=== PATIENT | female | born 1955 | race Two or more races ===

== ENCOUNTER 2017-02-13 11:43 | Emergency (ER) | payer OTHER, MEDICAID ==
[~2017-02-13] VITALS: Ht 157.5 cm; Wt 101.2 kg
[2017-02-13 13:19] LABS: Basophils # (auto) 0 uL; Basophils % (auto) 0.4 % (0.0-2.0); Eosinophils # (auto) 0.2 uL; Eosinophils % (auto) 2.2 % (0.0-7.0); Hematocrit 42.3 % (36.0-46.0); Hemoglobin 14.3 g/dL (12.2-16.2); Lymphocytes # (auto) 2.6 uL; Lymphocytes % (auto) 26.9 % (10.0-50.0); Mean Corpuscular Hemoglobin 29.1 pg (28.0-32.0); Mean Corpuscular Hgb Conc. 33.8 g/dL (32.0-36.0); Mean Corpuscular Volume 86.1 fL (80.0-100.0); Mean Platelet Volume 8.7 fL (7.4-10.4); Monocytes # (auto) 0.5 uL; Monocytes % (auto) 5.4 % (0.0-12.0); Neutrophils # (auto) 6.4 uL; Neutrophils % (auto) 65.1 % (37.0-80.0); Platelet Count (auto) 239 10^3/uL (140-450); White Blood Cell 9.8 10^3/uL (4.4-10.8)
[2017-02-13 13:25] LABS: Albumin 3.4 g/dL (3.4-5.0); Anion Gap 8 (5-15); Aspartate Aminotransferase 23 U/L (15-37); Blood Urea Nitrogen 13 mg/dL (7-18); Calcium 8.1 mg/dL (8.5-10.1); Carbon Dioxide 24 mmol/L (21-32); Chloride 110 mmol/L (98-107); GFR African American 118 mL/min; GFR Non-African American 98 mL/min; Glucose 120 mg/dL (74-106); Potassium 3.9 mmol/L (3.5-5.1); Sodium 142 mmol/L (136-145)
[2017-02-13 13:30] LABS: Alkaline Phosphatase 142 U/L (45-117); Bilirubin, Total 0.3 mg/dL (0.2-1.0); Total Protein 7.5 g/dL (6.4-8.2)
[2017-02-13 14:42] VITALS: BP 150/63
[2017-02-13] MEDS ORDERED: PROCHLORPERAZINE EDISYLATE 5 MG/ML 2ML VIAL IM ONE (15:00)
[2017-02-13] MEDS ORDERED: NALBUPHINE HCL 10 MG/1ml INJECTION IM ONE (15:00)
== END 2017-02-13 15:30 | disposition home or self-care (01) ==
LOC: ER 11:43
DX: G44.209 Tension-type headache, unspecified, not intractable (principal); M19.90 Unspecified osteoarthritis, unspecified site; J45.909 Unspecified asthma, uncomplicated; E78.5 Hyperlipidemia, unspecified; I10 Essential (primary) hypertension; F17.210 Nicotine dependence, cigarettes, uncomplicated; Z88.2 Allergy status to sulfonamides
CPT/HCPCS: 36415; 70450; 80053; 84484; 85025; 93005; 96372; 99285; J0780; J2300

== ENCOUNTER → 2017-04-29 | Outpatient (CLI) | payer OTHER, MEDICAID | END | disposition home or self-care (01) | LOC: RT 18:52 | PROVIDERS: ATTEND Internal Medicine | DX: R51 Headache (principal) ==

== ENCOUNTER 2017-06-17 10:01 | Day surgery (SDC) | payer OTHER, MEDICAID ==
[2017-06-15 16:46] LABS: Basophils # (auto) 0 uL; Basophils % (auto) 0.3 % (0.0-2.0); CONDITION Y; Eosinophils # (auto) 0.2 uL; Eosinophils % (auto) 1.3 % (0.0-7.0); Hematocrit 44.6 % (36.0-46.0); Hemoglobin 15.1 g/dL (12.2-16.2); Lymphocytes % (auto) 23.7 % (10.0-50.0); Mean Corpuscular Hemoglobin 29.6 pg (28.0-32.0); Mean Corpuscular Hgb Conc. 33.9 g/dL (32.0-36.0); Mean Corpuscular Volume 87.4 fL (80.0-100.0); Mean Platelet Volume 8.8 fL (7.4-10.4); Monocytes # (auto) 0.6 uL; Monocytes % (auto) 4.6 % (0.0-12.0); Neutrophils # (auto) 8.9 uL; Neutrophils % (auto) 70.1 % (37.0-80.0); Platelet Count (auto) 273 10^3/uL (140-450); Red Cell Distribution Width 13.7 % (11.6-16.0); White Blood Cell 12.7 10^3/uL (4.4-10.8)
[2017-06-15 16:49] LABS: Urine Bilirubin Negative (Negative); Urine Blood Negative /uL (Negative); Urine Color Yellow (Yellow); Urine Glucose Normal (Normal); Urine Ketone Negative (Negative); Urine Mucus FEW (None Seen); Urine Nitrite Negative (Negative); Urine RBC <1 /hpf (0 - 4); Urine Squamous Epithelial Cell FEW /hpf (<5)
[2017-06-15 16:56] LABS: Albumin 3.7 g/dL (3.4-5.0); Calcium 8.8 mg/dL (8.5-10.1)
[2017-06-15 16:58] LABS: INR 0.95 (0.9-1.15); Partial Thromboplastin Time 27.4 sec (22.64-33.71); Prothrombin Time 10.3 sec (9.37-12.3)
[2017-06-15 16:59] LABS: BUN/Creatinine Ratio 31.8
[2017-06-15 17:01] LABS: Bilirubin, Total 0.3 mg/dL (0.2-1.0); Total Protein 7.7 g/dL (6.4-8.2)
[~2017-06-17] VITALS: Ht 157.5 cm; Wt 103.0 kg
[2017-06-17] MEDS ORDERED: ceFAZolin 1GM/50ML D5W 50 ML IV ONE (10:56)
[2017-06-17] MEDS ORDERED: BUPIVACAINE 0.75% INJ 10ML MPV SDV IJ ONE (12:45)
[2017-06-17] MEDS ORDERED: MIDAZOLAM HCL 1MG/1ML-2 ML VIAL ONE (13:08)
[2017-06-17] MEDS ORDERED: fentaNYL CITRATE 100 MCG/2 ML VL ONE (13:08)
[2017-06-17] MEDS ORDERED: PROPOFOL 10 MG/ML 20 ML IV ONE (13:10)
[2017-06-17] MEDS ORDERED: ePHEDrine SULFATE 50 MG/ML AMP IV PRN (13:15)
[2017-06-17] MEDS ORDERED: LABETALOL HCL 5 MG/ML 4ML SYRINGE IV PRN (13:15)
[2017-06-17] MEDS ORDERED: hydrALAZINE HCL 20 MG/ML VL IV PRN (13:15)
[2017-06-17] MEDS ORDERED: HYDROmorphone HCL 2 MG/ML VL IV PRN ×2 (13:15)
[2017-06-17] MEDS ORDERED: METOCLOPRAMIDE HCL 5MG/ml INJ 2ml VIAL IV ONE (13:15)
[2017-06-17] MEDS ORDERED: ONDANSETRON HCL 4 MG/2 ML VIAL IV ONE (13:15)
[2017-06-17] MEDS ORDERED: ceFAZolin 1GM VL ONE (13:23)
[2017-06-17] MEDS ORDERED: methylPREDNISolone ACETATE 80 MG/ML VL ONE (13:40)
[2017-06-17 15:00] VITALS: BP 113/59
== END 2017-06-17 15:00 | disposition home or self-care (01) ==
LOC: SUR 10:01
PROVIDERS: ATTEND Podiatrist Foot & Ankle Surgery
DX: M65.871 Other synovitis and tenosynovitis, right ankle and foot (principal); M25.571 Pain in right ankle and joints of right foot; J44.9 Chronic obstructive pulmonary disease, unspecified; E66.9 Obesity, unspecified; E11.9 Type 2 diabetes mellitus without complications; F17.200 Nicotine dependence, unspecified, uncomplicated
CPT/HCPCS: 27626; 36415; 80053; 81001; 82962; 85025; 85610; 85730; J0690; J1040; J2250; J2704; J3010; J3490

== ENCOUNTER → 2017-08-26 | Outpatient (CLI) | payer OTHER, MEDICAID ==
[2017-08-26 10:20] LABS: Basophils # (auto) 0.1 uL; Basophils % (auto) 0.6 % (0.0-2.0); Eosinophils # (auto) 0.2 uL; Eosinophils % (auto) 1.8 % (0.0-7.0); Hematocrit 42.7 % (36.0-46.0); Hemoglobin 14.8 g/dL (12.2-16.2); Lymphocytes # (auto) 2.2 uL; Lymphocytes % (auto) 24.9 % (10.0-50.0); Mean Corpuscular Hemoglobin 30.2 pg (28.0-32.0); Mean Corpuscular Hgb Conc. 34.6 g/dL (32.0-36.0); Mean Corpuscular Volume 87.5 fL (80.0-100.0); Mean Platelet Volume 7.9 fL (6.9-10.8); Monocytes # (auto) 0.4 uL; Monocytes % (auto) 4.6 % (0.0-12.0); Neutrophils # (auto) 5.9 uL; Neutrophils % (auto) 68.1 % (37.0-80.0); Nucleated Red Blood Cells % 0.1 %; Platelet Count (auto) 216 10^3/uL (140-450); Red Cell Distribution Width 13.7 % (11.8-14.3); White Blood Cell 8.7 10^3/uL (4.4-10.8)
[2017-08-26 10:32] LABS: Urine Bilirubin Negative (Negative); Urine Blood Negative /uL (Negative); Urine Color Yellow (Yellow); Urine Glucose Normal (Normal); Urine Ketone Negative (Negative); Urine Mucus FEW (None Seen); Urine Nitrite Negative (Negative); Urine RBC 1 /hpf (0 - 4); Urine Squamous Epithelial Cell FEW /hpf (<5); Urine Urobilinogen Normal (Negative); Urine pH 5.5 (5.0-8.0)
[2017-08-26 11:20] LABS: Albumin 3.6 g/dL (3.4-5.0); BUN/Creatinine Ratio 22.2; Bilirubin, Total 0.8 mg/dL (0.2-1.0); Calcium 8.8 mg/dL (8.5-10.1); Potassium 3.8 mmol/L (3.5-5.1); Total Protein 7.8 g/dL (6.4-8.2)
== END | disposition home or self-care (01) ==
LOC: LAB 09:48
PROVIDERS: ATTEND Internal Medicine
DX: E11.9 Type 2 diabetes mellitus without complications (principal); I10 Essential (primary) hypertension; Z79.899 Other long term (current) drug therapy
CPT/HCPCS: 36415; 80053; 80061; 80307; 81001; 82043; 82306; 83036; 84439; 84443; 85025; 85652

== ENCOUNTER 2017-10-07 10:59 | Inpatient (IN) | payer OTHER, MEDICAID ==
[~2017-10-07] VITALS: Ht 157.5 cm; Wt 81.3 kg
[2017-10-07] MEDS ORDERED: SODIUM CHLORIDE 0.9% 1,000 ML IV ONE (13:52)
[2017-10-07] MEDS ORDERED: NALBUPHINE HCL 10 MG/1ml INJECTION IV ONE (14:00)
[2017-10-07] MEDS ORDERED: PROMETHAZINE HCL 25 MG/ML 1ML IV ONE (14:00)
[2017-10-07 14:13] LABS: Urine Bilirubin Negative (Negative); Urine Blood Negative /uL (Negative); Urine Color Yellow (Yellow); Urine Glucose Normal (Normal); Urine Ketone Negative (Negative); Urine Mucus FEW (None Seen); Urine Nitrite POSITIVE (Negative); Urine RBC <1 /hpf (0 - 4); Urine Squamous Epithelial Cell FEW /hpf (<5); Urine Urobilinogen Normal (Negative); Urine pH 7.5 (5.0-8.0)
[2017-10-07 15:07] LABS: Basophils # (auto) 0.2 uL; Basophils % (auto) 1.5 % (0.0-2.0); Eosinophils # (auto) 0 uL; Eosinophils % (auto) 0.2 % (0.0-7.0); Hematocrit 44.1 % (36.0-46.0); Lymphocytes # (auto) 1.3 uL; Lymphocytes % (auto) 10.8 % (10.0-50.0); Mean Corpuscular Hemoglobin 30.2 pg (28.0-32.0); Mean Corpuscular Volume 88.7 fL (80.0-100.0); Mean Platelet Volume 7.8 fL (6.9-10.8); Monocytes # (auto) 0.5 uL; Neutrophils # (auto) 9.9 uL; Neutrophils % (auto) 83.5 % (37.0-80.0); Nucleated Red Blood Cells % 0.2 %; Platelet Count (auto) 201 10^3/uL (140-450); Red Cell Distribution Width 13.3 % (11.8-14.3); White Blood Cell 11.9 10^3/uL (4.4-10.8)
[2017-10-07 15:08] LABS: Albumin 3.5 g/dL (3.4-5.0); BUN/Creatinine Ratio 15.2; Calcium 8.9 mg/dL (8.5-10.1)
[2017-10-07 15:11] LABS: Bilirubin, Total 0.5 mg/dL (0.2-1.0); Total Protein 7.8 g/dL (6.4-8.2)
[2017-10-07] MEDS ORDERED: LACTULOSE 20Gm/30ML SOLN PO PRN (16:45)
[2017-10-07] MEDS ORDERED: ACETAMINOPHEN 500 MG TAB PO PRN (16:45)
[2017-10-07] MEDS ORDERED: MORPHINE SULFATE 10 MG/ML INJ 1ML SDV IV PRN ×2 (16:45)
[2017-10-07] MEDS ORDERED: NITROGLYCERIN 0.4 MG SL TAB SL PRN (16:45)
[2017-10-07] MEDS ORDERED: LORazepam 0.5 MG TAB PO PRN (16:45)
[2017-10-07] MEDS ORDERED: TEMAZEPAM 15 MG CAP PO PRN (16:45)
[2017-10-07] MEDS ORDERED: PROMETHAZINE HCL 25 MG/ML 1ML IV PRN (16:45)
[2017-10-07] MEDS ORDERED: cefTRIAXone 1GM/50ML D5W 50 ML IV ONE (16:45)
[2017-10-07] MEDS: SODIUM CHLORIDE 0.9% 1,000 ML IV SCH ×2 (17:10→21:49)
[2017-10-07] MEDS ORDERED: IOHEXOL 300 MG/ML 100ML BOTTLE IJ ONE (19:08)
[2017-10-07] MEDS: HYDROcodone-ACET 5/325MG TAB PO PRN (19:45)
[2017-10-07] MEDS ORDERED: LORazepam 2MG/ML-1ML VIAL IV PRN (20:15)
[2017-10-07] MEDS ORDERED: predniSONE 20 MG TAB PO ONE (20:30)
[2017-10-07] MEDS ORDERED: FAMOTIDINE 20 MG TAB PO ONE (20:30)
[2017-10-07 20:55] VITALS: BP 158/74
[2017-10-07 21:10] VITALS: BP 158/74
[2017-10-07] MEDS: ATORVASTATIN 20 MG TAB PO SCH (21:49)
[2017-10-08] VITALS (7 sets, daily range): BP systolic 111–163; BP diastolic 41–89
[2017-10-08] MEDS: HYDROcodone-ACET 5/325MG TAB PO PRN ×3 (04:34→22:12)
[2017-10-08] MEDS: SODIUM CHLORIDE 0.9% 1,000 ML IV SCH ×2 (04:53→17:05)
[2017-10-08 05:42] LABS: Cholesterol 194 mg/dL (< 200); HDL Cholesterol 50 mg/dL (40-59); LDL Cholesterol 140 mg/dL (< 100); Triglycerides 135 mg/dL (< 150)
[2017-10-08] MEDS: predniSONE 20 MG TAB PO SCH (09:43)
[2017-10-08] MEDS: cefTRIAXone 1GM/50ML D5W 50 ML IV SCH (09:43)
[2017-10-08] MEDS: ASPirin 81 mg TAB PO SCH (09:43)
[2017-10-08] MEDS: FAMOTIDINE 20 MG TAB PO SCH (09:43)
[2017-10-08] MEDS: ENOXAPARIN SOD 40 MG/0.4 ML SYRINGE SC SCH (09:44)
[2017-10-08 13:14] LABS: Temperature: 23.5 C (20.0-25.0)
[2017-10-08] MEDS ORDERED: FLUO-125 PO (16:47)
[2017-10-08] MEDS ORDERED: GABA-497 PO (16:47)
[2017-10-08] MEDS ORDERED: BUPR200T2 PO (16:47)
[2017-10-08] MEDS ORDERED: AMIT25TA9 PO (16:47)
[2017-10-08] MEDS ORDERED: LOSA25TA9 PO (16:47)
[2017-10-08] MEDS ORDERED: LOSARTAN POTASSIUM 25 MG TAB PO ONE (18:30)
[2017-10-08] MEDS: KETOROLAC TROMETH 30 MG/ML 1ML VIAL IV PRN (18:44)
[2017-10-08] MEDS: ATORVASTATIN 20 MG TAB PO SCH (22:11)
[2017-10-09 05:00] VITALS: BP 119/42
[2017-10-09 05:45] LABS: Basophils # (auto) 0 uL; Basophils % (auto) 0.3 % (0.0-2.0); Eosinophils # (auto) 0.1 uL; Eosinophils % (auto) 0.5 % (0.0-7.0); Hematocrit 41.3 % (36.0-46.0); Lymphocytes # (auto) 3.6 uL; Lymphocytes % (auto) 29.9 % (10.0-50.0); Mean Corpuscular Hemoglobin 30.1 pg (28.0-32.0); Mean Corpuscular Hgb Conc. 33.9 g/dL (32.0-36.0); Mean Corpuscular Volume 88.8 fL (80.0-100.0); Mean Platelet Volume 8.2 fL (6.9-10.8); Monocytes # (auto) 0.7 uL; Monocytes % (auto) 5.9 % (0.0-12.0); Neutrophils # (auto) 7.7 uL; Neutrophils % (auto) 63.4 % (37.0-80.0); Nucleated Red Blood Cells % 0.1 %; Platelet Count (auto) 199 10^3/uL (140-450); Red Cell Distribution Width 13.7 % (11.8-14.3); White Blood Cell 12.2 10^3/uL (4.4-10.8)
[2017-10-09] MEDS: SODIUM CHLORIDE 0.9% 1,000 ML IV SCH ×3 (05:46→22:00)
[2017-10-09 06:11] LABS: Potassium 3.8 mmol/L (3.5-5.1)
[2017-10-09 06:17] LABS: BUN/Creatinine Ratio 30.4; Calcium 9.1 mg/dL (8.5-10.1)
[2017-10-09 08:00] VITALS: BP 129/59
[2017-10-09 08:23] LABS: INR 0.97 (0.9-1.15); Partial Thromboplastin Time 26.5 sec (22.64-33.71); Prothrombin Time 10.6 sec (9.37-12.3)
[2017-10-09 09:00] VITALS: BP 129/59
[2017-10-09] MEDS: cefTRIAXone 1GM/50ML D5W 50 ML IV SCH (09:00)
[2017-10-09] MEDS ORDERED: GELATIN 1 SPONGE SIZE 100 TOP ONE (09:50)
[2017-10-09] MEDS ORDERED: GELATIN 1 SPONGE SIZE 50 TOP ONE (09:50)
[2017-10-09] MEDS ORDERED: LIDOCAINE 1% HCL (LOCAL ANESTH.) INJ 20ML MDV ONE (09:50)
[2017-10-09] MEDS: ASPirin 81 mg TAB PO SCH (10:00)
[2017-10-09] MEDS: ENOXAPARIN SOD 40 MG/0.4 ML SYRINGE SC SCH (10:00)
[2017-10-09] MEDS: predniSONE 20 MG TAB PO SCH (10:00)
[2017-10-09] MEDS: FAMOTIDINE 20 MG TAB PO SCH (10:00)
[2017-10-09] MEDS ORDERED: fentaNYL CITRATE 100 MCG/2 ML VL ONE (10:10)
[2017-10-09] MEDS ORDERED: MIDAZOLAM HCL 1MG/1ML-2 ML VIAL ONE (10:10)
[2017-10-09] MEDS ORDERED: ceFAZolin 1GM/50ML 50 ML IV ONE (10:14)
[2017-10-09] MEDS ORDERED: LABETALOL HCL 5 MG/ML 4ML SYRINGE IV PRN (10:15)
[2017-10-09] MEDS ORDERED: KETOROLAC TROMETH 30 MG/ML 1ML VIAL IV ONE (10:15)
[2017-10-09] MEDS ORDERED: MIDAZOLAM HCL 1MG/1ML-2 ML VIAL IV PRN (10:15)
[2017-10-09] MEDS ORDERED: ONDANSETRON HCL 4 MG/2 ML VIAL IV ONE (10:15)
[2017-10-09] MEDS ORDERED: HYDROmorphone HCL 2 MG/ML VL IV PRN (10:15)
[2017-10-09] MEDS ORDERED: ePHEDrine SULFATE 50 MG/ML AMP IV PRN (10:15)
[2017-10-09] MEDS ORDERED: DEXAMETHASONE SOD PHOS 10MG/1ML VIAL INJ ONE (11:18)
[2017-10-09] MEDS ORDERED: PROPOFOL 10 MG/ML 20 ML IV ONE (11:18)
[2017-10-09] MEDS ORDERED: KETOROLAC TROMETH 30 MG/ML 1ML VIAL ONE (11:18)
[2017-10-09] MEDS ORDERED: ceFAZolin 1GM VL ONE (11:19)
[2017-10-09 13:00] VITALS: BP 160/96
[2017-10-09] MEDS: LOSARTAN POTASSIUM 25 MG TAB PO SCH (14:00)
[2017-10-09 17:00] VITALS: BP 139/70
[2017-10-09] MEDS: HYDROcodone-ACET 5/325MG TAB PO PRN (17:21)
[2017-10-09] MEDS: ATORVASTATIN 20 MG TAB PO SCH (21:15)
[2017-10-09 22:00] VITALS: BP 136/61
[2017-10-10 05:00] VITALS: BP 125/52
[2017-10-10] MEDS: SODIUM CHLORIDE 0.9% 1,000 ML IV SCH (06:29)
[2017-10-10] MEDS: HYDROcodone-ACET 5/325MG TAB PO PRN ×2 (06:29→12:37)
[2017-10-10 09:00] VITALS: BP 155/66
[2017-10-10] MEDS: FAMOTIDINE 20 MG TAB PO SCH (09:38)
[2017-10-10] MEDS: LOSARTAN POTASSIUM 25 MG TAB PO SCH (09:39)
[2017-10-10] MEDS: ENOXAPARIN SOD 40 MG/0.4 ML SYRINGE SC SCH (09:40)
[2017-10-10] MEDS: predniSONE 20 MG TAB PO SCH (09:40)
[2017-10-10] MEDS: cefTRIAXone 1GM/50ML D5W 50 ML IV SCH (09:40)
[2017-10-10] MEDS: ASPirin 81 mg TAB PO SCH (09:40)
[2017-10-10] MEDS: KETOROLAC TROMETH 30 MG/ML 1ML VIAL IV PRN (10:46)
[2017-10-10 13:00] VITALS: BP 151/62
== END 2017-10-10 14:56 | disposition home or self-care (01) | DRG 134 ==
LOC: ER 10:59 → TELE 11:00 → TELE-WESTW 20:50
PROVIDERS: ADMIT Internal Medicine; ATTEND Family Medicine
PROC: 03BS0ZX Excision of Right Temporal Artery, Open Approach, Diagnostic (ICD-10-PCS; principal; 2017-10-09 10:57)
DX: M26.69 Other specified disorders of temporomandibular joint (principal); M31.6 Other giant cell arteritis; E11.9 Type 2 diabetes mellitus without complications; E78.5 Hyperlipidemia, unspecified; I10 Essential (primary) hypertension; J45.909 Unspecified asthma, uncomplicated; F17.210 Nicotine dependence, cigarettes, uncomplicated; G50.0 Trigeminal neuralgia; M19.90 Unspecified osteoarthritis, unspecified site; E66.9 Obesity, unspecified; Z88.8 Allergy status to other drugs, medicaments and biological substances; Z86.73 Personal history of transient ischemic attack (TIA), and cerebral infarction without residual deficits; Z68.32 Body mass index [BMI] 32.0-32.9, adult
CPT/HCPCS: 36415; 70450; 70487; 70551; 71020; 80048; 80053; 80061; 80307; 81001; 82550; 82607; 82746; 83735; 84443; 85025; 85610; 85652; 85730; 86141; 87086; 92610; 93005; 93306; 93886; 94761; 96361; 96374; 96375; J0690; J0696; J1100; J1885; J2001; J2250; J2704

== ENCOUNTER → 2017-10-21 | Outpatient (CLI) | payer OTHER, MEDICAID ==
[~2017-10-21] MED LIST: AMIT25TA9 PO; BUPR200T2 PO; FLUO-125 PO; GABA-497 PO; LOSA25TA9 PO
[2017-10-21 14:26] LABS: Basophils # (auto) 0 uL; Basophils % (auto) 0.5 % (0.0-2.0); Eosinophils # (auto) 0.2 uL; Eosinophils % (auto) 2.6 % (0.0-7.0); Hematocrit 39.7 % (36.0-46.0); Hemoglobin 13.4 g/dL (12.2-16.2); Lymphocytes # (auto) 2.8 uL; Lymphocytes % (auto) 30.7 % (10.0-50.0); Mean Corpuscular Hemoglobin 30.1 pg (28.0-32.0); Mean Corpuscular Hgb Conc. 33.7 g/dL (32.0-36.0); Mean Corpuscular Volume 89.1 fL (80.0-100.0); Mean Platelet Volume 7.8 fL (6.9-10.8); Monocytes # (auto) 0.4 uL; Monocytes % (auto) 4.8 % (0.0-12.0); Neutrophils # (auto) 5.6 uL; Neutrophils % (auto) 61.4 % (37.0-80.0); Nucleated Red Blood Cells % 0.1 %; Platelet Count (auto) 230 10^3/uL (140-450); Red Cell Distribution Width 13.6 % (11.8-14.3); White Blood Cell 9.2 10^3/uL (4.4-10.8)
[2017-10-21 14:45] LABS: Albumin 3.3 g/dL (3.4-5.0); BUN/Creatinine Ratio 25.7; Bilirubin, Total 0.3 mg/dL (0.2-1.0); Calcium 8.3 mg/dL (8.5-10.1); Potassium 3.9 mmol/L (3.5-5.1)
== END | disposition home or self-care (01) ==
LOC: LAB 13:54
PROVIDERS: ATTEND Internal Medicine
DX: E10.9 Type 1 diabetes mellitus without complications (principal); R51 Headache
CPT/HCPCS: 36415; 80053; 85025; 86141

== ENCOUNTER → 2017-12-15 | Outpatient (CLI) | payer OTHER, MEDICAID ==
[~2017-12-15] MED LIST changes: -GABA-497 PO; +GABA300C10 PO
[2017-12-15 12:58] LABS: Basophils # (auto) 0 uL; Basophils % (auto) 0.4 % (0.0-2.0); Eosinophils # (auto) 0.2 uL; Eosinophils % (auto) 1.5 % (0.0-7.0); Hematocrit 43.5 % (36.0-46.0); Hemoglobin 14.9 g/dL (12.2-16.2); Lymphocytes # (auto) 2.5 uL; Lymphocytes % (auto) 24.2 % (10.0-50.0); Mean Corpuscular Hgb Conc. 34.2 g/dL (32.0-36.0); Mean Corpuscular Volume 87.9 fL (80.0-100.0); Monocytes # (auto) 0.5 uL; Monocytes % (auto) 4.5 % (0.0-12.0); Neutrophils # (auto) 7.1 uL; Neutrophils % (auto) 69.4 % (37.0-80.0); Platelet Count (auto) 240 10^3/uL (140-450); Red Blood Cells 4.95 10^6/uL (4.0-5.20); Red Cell Distribution Width 13.6 % (11.8-14.3); White Blood Cell 10.2 10^3/uL (4.4-10.8)
[2017-12-15 13:24] LABS: Albumin 3.6 g/dL (3.4-5.0); BUN/Creatinine Ratio 18.3; Bilirubin, Total 0.5 mg/dL (0.2-1.0); CRP High Sensitivity 1.29 mg/dL (< 0.3); Potassium 3.9 mmol/L (3.5-5.1); Total Protein 7.7 g/dL (6.4-8.2)
== END | disposition home or self-care (01) ==
LOC: LAB 11:54
PROVIDERS: ATTEND Internal Medicine
DX: M26.609 Unspecified temporomandibular joint disorder, unspecified side (principal); E11.9 Type 2 diabetes mellitus without complications; I10 Essential (primary) hypertension; J45.909 Unspecified asthma, uncomplicated
CPT/HCPCS: 36415; 80053; 85025; 86141

== ENCOUNTER 2018-02-14 12:17 | Emergency (ER) | payer OTHER, MEDICAID ==
[~2018-02-14] VITALS: Ht 157.5 cm; Wt 104.3 kg
[2018-02-14] MEDS ORDERED: KETOROLAC TROMETH 60MG/2ML VIAL IM ONE (14:00)
[2018-02-14 16:00] VITALS: BP 147/59
== END 2018-02-14 16:13 | disposition home or self-care (01) ==
LOC: ER 12:17
DX: R51 Headache (principal); J45.909 Unspecified asthma, uncomplicated; E78.5 Hyperlipidemia, unspecified; I10 Essential (primary) hypertension; F17.210 Nicotine dependence, cigarettes, uncomplicated; Z86.73 Personal history of transient ischemic attack (TIA), and cerebral infarction without residual deficits
CPT/HCPCS: 70450; 96372; 99284; J1885

== ENCOUNTER → 2018-03-19 | Outpatient (CLI) | payer OTHER, MEDICAID ==
[~2018-03-19] MED LIST changes: +ALBUAER3 IN; +OMEP20TA PO; +OXYB10TA13 PO
[2018-03-19 12:41] LABS: Albumin 3.6 g/dL (3.4-5.0); BUN/Creatinine Ratio 14.9; Bilirubin, Total 0.5 mg/dL (0.2-1.0); Calcium 9.1 mg/dL (8.5-10.1); Total Protein 7.9 g/dL (6.4-8.2)
== END | disposition home or self-care (01) ==
LOC: LAB 10:30
PROVIDERS: ATTEND Internal Medicine
DX: E78.00 Pure hypercholesterolemia, unspecified (principal); E11.9 Type 2 diabetes mellitus without complications; F17.210 Nicotine dependence, cigarettes, uncomplicated; I10 Essential (primary) hypertension; J44.9 Chronic obstructive pulmonary disease, unspecified
CPT/HCPCS: 36415; 80053; 80061; 83036

== ENCOUNTER → 2018-06-03 | Outpatient (CLI) | payer OTHER, MEDICAID ==
[~2018-06-03] MED LIST changes: -BUPR200T2 PO
[2018-06-03 11:25] LABS: Basophils # (auto) 0 uL; Basophils % (auto) 0.5 % (0.0-2.0); Eosinophils # (auto) 0.2 uL; Eosinophils % (auto) 2.1 % (0.0-7.0); Hematocrit 43.5 % (36.0-46.0); Hemoglobin 14.6 g/dL (12.2-16.2); Lymphocytes # (auto) 2.4 uL; Lymphocytes % (auto) 30.5 % (10.0-50.0); Mean Corpuscular Hemoglobin 28.6 pg (28.0-32.0); Mean Corpuscular Hgb Conc. 33.6 g/dL (32.0-36.0); Mean Corpuscular Volume 85.1 fL (80.0-100.0); Monocytes # (auto) 0.4 uL; Monocytes % (auto) 4.5 % (0.0-12.0); Neutrophils % (auto) 62.4 % (37.0-80.0); Nucleated Red Blood Cells % 0.1 %; Platelet Count (auto) 252 10^3/uL (140-450); Red Blood Cells 5.12 10^6/uL (4.0-5.20)
[2018-06-03 11:49] LABS: Cholesterol 196 mg/dL (< 200); HDL Cholesterol 34 mg/dL (40-59); LDL Cholesterol 131 mg/dL (< 100); Triglycerides 225 mg/dL (< 150)
== END | disposition home or self-care (01) ==
LOC: LAB 11:06
PROVIDERS: ATTEND Internal Medicine
DX: E11.9 Type 2 diabetes mellitus without complications (principal); D64.9 Anemia, unspecified; E78.5 Hyperlipidemia, unspecified; I10 Essential (primary) hypertension; F32.9 Major depressive disorder, single episode, unspecified; Z79.899 Other long term (current) drug therapy
CPT/HCPCS: 36415; 80061; 82306; 82607; 83036; 83540; 85025

== ENCOUNTER → 2018-09-07 | Outpatient (CLI) | payer OTHER, MEDICAID ==
[~2018-09-07] MED LIST changes: +LOSA25TA40 PO; -LOSA25TA9 PO; -OXYB10TA13 PO; +OXYB10TA14 PO
== END | disposition home or self-care (01) ==
LOC: LAB 11:30
PROVIDERS: ATTEND Physician Assistant
DX: L82.1 Other seborrheic keratosis (principal); L91.8 Other hypertrophic disorders of the skin

== ENCOUNTER → 2019-01-07 | Outpatient (CLI) | payer OTHER, MEDICAID ==
[2019-01-07 12:40] LABS: Urine Bacteria FEW /hpf (None Seen); Urine Blood Negative /uL (Negative); Urine Mucus FEW (None Seen); Urine Specific Gravity 1.025 (1.001-1.035); Urine WBC 1 /hpf (0 - 5)
[2019-01-07 12:41] LABS: Basophils # (auto) 0 uL; Basophils % (auto) 0.6 % (0.0-2.0); Eosinophils # (auto) 0.1 uL; Eosinophils % (auto) 1.5 % (0.0-7.0); Hematocrit 41.9 % (36.0-46.0); Hemoglobin 14.6 g/dL (12.2-16.2); Lymphocytes # (auto) 1.9 uL; Lymphocytes % (auto) 25.3 % (10.0-50.0); Mean Corpuscular Hgb Conc. 34.8 g/dL (32.0-36.0); Mean Corpuscular Volume 86.2 fL (80.0-100.0); Monocytes # (auto) 0.4 uL; Monocytes % (auto) 4.8 % (0.0-12.0); Neutrophils # (auto) 5.1 uL; Neutrophils % (auto) 67.8 % (37.0-80.0); Nucleated Red Blood Cells % 0.1 %; Platelet Count (auto) 234 10^3/uL (140-450); Red Blood Cells 4.86 10^6/uL (4.0-5.20); Red Cell Distribution Width 13.4 % (11.8-14.3); White Blood Cell 7.6 10^3/uL (4.4-10.8)
[2019-01-07 13:13] LABS: Potassium 3.9 mmol/L (3.5-5.1)
[2019-01-07 13:17] LABS: Free T4 (Free Thyroxine) 0.97 ng/dL (0.89-1.76)
[2019-01-07 13:38] LABS: Albumin 3.6 g/dL (3.4-5.0); Bilirubin, Total 0.5 mg/dL (0.2-1.0); Calcium 8.9 mg/dL (8.5-10.1); Total Protein 7.6 g/dL (6.4-8.2)
== END | disposition home or self-care (01) ==
LOC: LAB 11:24
PROVIDERS: ATTEND Internal Medicine
DX: Z01.01 Encounter for examination of eyes and vision with abnormal findings (principal); E11.21 Type 2 diabetes mellitus with diabetic nephropathy
CPT/HCPCS: 36415; 80053; 80061; 81001; 82043; 82607; 83036; 84439; 84443; 85025; 85652

== ENCOUNTER → 2019-01-18 | Outpatient (CLI) | payer OTHER, MEDICAID ==
[2019-01-18 10:09] LABS: Urine WBC None Seen /hpf (0 - 5)
[2019-01-18 10:12] LABS: Basophils # (auto) 0.1 uL; Basophils % (auto) 0.7 % (0.0-2.0); Eosinophils # (auto) 0.2 uL; Eosinophils % (auto) 2.1 % (0.0-7.0); Lymphocytes # (auto) 2.1 uL; Lymphocytes % (auto) 25.6 % (10.0-50.0); Mean Corpuscular Hemoglobin 30.6 pg (28.0-32.0); Mean Corpuscular Hgb Conc. 34.9 g/dL (32.0-36.0); Mean Corpuscular Volume 87.4 fL (80.0-100.0); Monocytes # (auto) 0.4 uL; Monocytes % (auto) 5.1 % (0.0-12.0); Neutrophils # (auto) 5.5 uL; Neutrophils % (auto) 66.5 % (37.0-80.0); Nucleated Red Blood Cells % 0.1 %; Platelet Count (auto) 231 10^3/uL (140-450); Red Blood Cells 4.92 10^6/uL (4.0-5.20); White Blood Cell 8.3 10^3/uL (4.4-10.8)
[2019-01-18 10:25] LABS: INR 0.94 (0.9-1.15); Partial Thromboplastin Time 29.6 sec (23.78-33.04); Prothrombin Time 10.1 sec (9.27-12.13)
[2019-01-18 10:26] LABS: Urine Bacteria NONE SEEN /hpf (None Seen); Urine Blood Negative /uL (Negative); Urine Specific Gravity 1.018 (1.001-1.035)
[2019-01-18 10:33] LABS: Albumin 3.6 g/dL (3.4-5.0); Calcium 8.6 mg/dL (8.5-10.1); Potassium 4.6 mmol/L (3.5-5.1)
[2019-01-18 10:35] LABS: BUN/Creatinine Ratio 16.7
[2019-01-18 10:39] LABS: Bilirubin, Total 0.5 mg/dL (0.2-1.0); Total Protein 7.6 g/dL (6.4-8.2)
== END | disposition home or self-care (01) ==
LOC: LAB 09:56
PROVIDERS: ATTEND Internal Medicine
CPT/HCPCS: 36415; 80053; 81001; 85025; 85610; 85730

== ENCOUNTER → 2019-03-11 | Outpatient (CLI) | payer OTHER, MEDICAID ==
[2019-03-11 11:34] LABS: Urine Blood Negative /uL (Negative); Urine Specific Gravity 1.025 (1.001-1.035)
[2019-03-11 11:42] LABS: Basophils # (auto) 0.1 uL; Basophils % (auto) 0.7 % (0.0-2.0); Eosinophils # (auto) 0.1 uL; Eosinophils % (auto) 1.3 % (0.0-7.0); Hematocrit 45.4 % (36.0-46.0); Hemoglobin 15.4 g/dL (12.2-16.2); Lymphocytes # (auto) 2.3 uL; Lymphocytes % (auto) 26.4 % (10.0-50.0); Mean Corpuscular Hemoglobin 29.5 pg (28.0-32.0); Mean Corpuscular Hgb Conc. 33.9 g/dL (32.0-36.0); Monocytes # (auto) 0.4 uL; Monocytes % (auto) 4.6 % (0.0-12.0); Neutrophils # (auto) 5.8 uL; Nucleated Red Blood Cells % 0.1 %; Platelet Count (auto) 222 10^3/uL (140-450); Red Blood Cells 5.21 10^6/uL (4.0-5.20); Red Cell Distribution Width 13.7 % (11.8-14.3); White Blood Cell 8.6 10^3/uL (4.4-10.8)
[2019-03-11 11:46] LABS: INR 0.92 (0.9-1.15); Partial Thromboplastin Time 28.8 sec (23.78-33.04); Prothrombin Time 9.9 sec (9.27-12.13)
[2019-03-11 13:24] LABS: Albumin 3.8 g/dL (3.4-5.0); Calcium 8.8 mg/dL (8.5-10.1); Potassium 4.1 mmol/L (3.5-5.1)
[2019-03-11 13:27] LABS: BUN/Creatinine Ratio 23.3; Bilirubin, Total 0.6 mg/dL (0.2-1.0); Total Protein 7.7 g/dL (6.4-8.2)
== END | disposition home or self-care (01) ==
LOC: LAB 11:04
PROVIDERS: ATTEND Specialist
DX: Z01.812 Encounter for preprocedural laboratory examination (principal); H25.11 Age-related nuclear cataract, right eye; D68.311 Acquired hemophilia; Z79.01 Long term (current) use of anticoagulants
CPT/HCPCS: 36415; 80053; 81003; 85025; 85610; 85730

== ENCOUNTER → 2019-06-13 | Day surgery (SDC) | payer OTHER, MEDICAID ==
[2019-06-09 11:10] LABS: Basophils # (auto) 0 uL; Basophils % (auto) 0.5 % (0.0-2.0); Eosinophils # (auto) 0.1 uL; Eosinophils % (auto) 1.9 % (0.0-7.0); Hemoglobin 14.5 g/dL (12.2-16.2); Lymphocytes % (auto) 28.6 % (10.0-50.0); Mean Corpuscular Hemoglobin 29.2 pg (28.0-32.0); Mean Corpuscular Hgb Conc. 33.8 g/dL (32.0-36.0); Mean Corpuscular Volume 86.3 fL (80.0-100.0); Monocytes # (auto) 0.3 uL; Monocytes % (auto) 4.9 % (0.0-12.0); Neutrophils # (auto) 4.4 uL; Neutrophils % (auto) 64.1 % (37.0-80.0); Platelet Count (auto) 208 10^3/uL (140-450); Red Blood Cells 4.98 10^6/uL (4.0-5.20); Red Cell Distribution Width 13.4 % (11.8-14.3); White Blood Cell 6.9 10^3/uL (4.4-10.8)
[2019-06-09 11:27] LABS: INR 0.97 (0.9-1.15); Partial Thromboplastin Time 27.3 sec (23.64-32.05)
[~2019-06-13] VITALS: Ht 157.5 cm; Wt 95.7 kg
[~2019-06-13] MED LIST changes: -LOSA25TA40 PO; +SODIUM CHLORIDE LOCK 10 ML ONE; +diphenhdrAMINE HCL 50 MG/1 ML VL ONE
[2019-06-13] MEDS: fentaNYL CITRATE 100 MCG/2 ML VL ONE ×3 (10:23→10:33)
[2019-06-13] MEDS: MIDAZOLAM HCL 5 MG/ML-1ML VIAL ONE ×3 (10:23→10:33)
[2019-06-13 11:23] VITALS: BP 139/77
== END | disposition home or self-care (01) ==
LOC: GI 09:42
PROVIDERS: ATTEND Internal Medicine Gastroenterology
DX: Z12.11 Encounter for screening for malignant neoplasm of colon (principal); K63.5 Polyp of colon; K57.30 Diverticulosis of large intestine without perforation or abscess without bleeding; K64.8 Other hemorrhoids; F17.200 Nicotine dependence, unspecified, uncomplicated; E66.9 Obesity, unspecified; Z88.8 Allergy status to other drugs, medicaments and biological substances; Z87.59 Personal history of other complications of pregnancy, childbirth and the puerperium; Z68.28 Body mass index [BMI] 28.0-28.9, adult; Z79.899 Other long term (current) drug therapy; Z79.82 Long term (current) use of aspirin
CPT/HCPCS: 36415; 45380; 85025; 85610; 85730; 88305; J1200; J2250; J3010; J7030; 99152

== ENCOUNTER → 2019-11-11 | Outpatient (CLI) | payer OTHER, MEDICAID ==
[~2019-11-11] MED LIST changes: -SODIUM CHLORIDE LOCK 10 ML ONE; -diphenhdrAMINE HCL 50 MG/1 ML VL ONE
[2019-11-11 15:49] LABS: Albumin 3.5 g/dL (3.4-5.0); Calcium 8.6 mg/dL (8.5-10.1)
[2019-11-11 15:55] LABS: BUN/Creatinine Ratio 20.6; Bilirubin, Total 0.3 mg/dL (0.2-1.0); CRP High Sensitivity 0.76 mg/dL (< 0.3); Total Protein 7.3 g/dL (6.4-8.2)
[2019-11-11 15:56] LABS: Basophils # (auto) 0.1 uL; Basophils % (auto) 0.6 % (0.0-2.0); Eosinophils # (auto) 0.1 uL; Eosinophils % (auto) 0.8 % (0.0-7.0); Hematocrit 41.4 % (36.0-46.0); Lymphocytes # (auto) 2.6 uL; Lymphocytes % (auto) 24.4 % (10.0-50.0); Mean Corpuscular Hemoglobin 29.5 pg (28.0-32.0); Monocytes # (auto) 0.6 uL; Monocytes % (auto) 5.5 % (0.0-12.0); Neutrophils # (auto) 7.2 uL; Neutrophils % (auto) 68.7 % (37.0-80.0); Nucleated Red Blood Cells % 0.1 %; Platelet Count (auto) 210 10^3/uL (140-450); Red Blood Cells 4.76 10^6/uL (4.0-5.20); Red Cell Distribution Width 13.9 % (11.8-14.3); White Blood Cell 10.5 10^3/uL (4.4-10.8)
== END | disposition home or self-care (01) ==
LOC: LAB 14:53
PROVIDERS: ATTEND Internal Medicine
DX: E11.9 Type 2 diabetes mellitus without complications (principal); I10 Essential (primary) hypertension; R51 Headache
CPT/HCPCS: 36415; 80053; 83036; 85025; 85652; 86141

== ENCOUNTER 2020-04-15 12:09 | Inpatient (IN) | payer OTHER, MEDICAID ==
[~2020-04-15] VITALS: Ht 157.5 cm; Wt 98.6 kg
[2020-04-15] MEDS ORDERED: SODIUM CHLORIDE 0.9% 1,000 ML IVB ONE (12:45)
[2020-04-15 13:23] LABS: Basophils # (auto) 0.1 10 ^3/uL (0-0.2); Basophils % (auto) 0.8 % (0.0-2.0); Eosinophils # (auto) 0.2 10 ^3/uL (0-0.8); Hematocrit 44.7 % (36.0-46.0); Hemoglobin 14.7 g/dL (12.2-16.2); Lymphocytes # (auto) 2.2 10 ^3/uL (0.4-5.4); Lymphocytes % (auto) 26.8 % (10.0-50.0); Mean Corpuscular Hemoglobin 28.9 pg (28.0-32.0); Mean Corpuscular Volume 87.4 fL (80.0-100.0); Monocytes # (auto) 0.5 10 ^3/uL (0-1.3); Monocytes % (auto) 5.6 % (0.0-12.0); Neutrophils # (auto) 5.3 10 ^3/uL (1.6-8.6); Neutrophils % (auto) 64.8 % (37.0-80.0); Nucleated Red Blood Cells % 0.1 %; Platelet Count (auto) 200 10^3/uL (140-450); Red Blood Cells 5.11 10^6/uL (4.0-5.20); Red Cell Distribution Width 14.2 % (11.8-14.3); White Blood Cell 8.1 10^3/uL (4.4-10.8)
[2020-04-15 13:39] LABS: Albumin 3.6 g/dL (3.4-5.0); Calcium 8.8 mg/dL (8.5-10.1); INR 1.01 (0.9-1.15); Magnesium 2.2 mg/dL (1.6-2.6); Partial Thromboplastin Time 27.8 sec (23.64-32.05); Potassium 4.2 mmol/L (3.5-5.1)
[2020-04-15 13:44] LABS: BUN/Creatinine Ratio 17.1; Bilirubin, Total 0.6 mg/dL (0.2-1.0); Total Protein 7.9 g/dL (6.4-8.2)
[2020-04-15 15:55] LABS: Urine Bacteria MANY /hpf (None Seen); Urine Blood Negative /uL (Negative); Urine Mucus FEW (None Seen); Urine Specific Gravity 1.011 (1.001-1.035); Urine WBC 1 /hpf (0 - 5)
[2020-04-15] MEDS ORDERED: MORPHINE SULF INJ 2 MG/ML SYRINGE 1ML IV ONE (16:15)
[2020-04-15] MEDS: SODIUM CHLORIDE 0.9% 1,000 ML IV SCH (16:33)
[2020-04-15] MEDS ORDERED: cefTRIAXone 1GM/50ML D5W 50 ML IV ONE (16:45)
[2020-04-15 17:00] VITALS: BP 138/63
[2020-04-15 19:44] VITALS: BP 138/63
[2020-04-15] MEDS: MORPHINE SULF INJ 2 MG/ML SYRINGE 1ML IV PRN (20:54)
[2020-04-15] MEDS: metroNIDAZOLE 500MG/100ML 100 ML IV SCH (21:21)
[2020-04-15] MEDS: FAMOTIDINE 20 MG TAB PO SCH (21:21)
[2020-04-15 22:00] VITALS: BP 141/72
[2020-04-16] MEDS: SODIUM CHLORIDE 0.9% 1,000 ML IV SCH ×3 (02:33→23:05)
[2020-04-16 05:00] VITALS: BP 141/71
[2020-04-16] MEDS: metroNIDAZOLE 500MG/100ML 100 ML IV SCH ×3 (05:50→21:26)
[2020-04-16 06:56] LABS: Basophils # (auto) 0 10 ^3/uL (0-0.2); Basophils % (auto) 0.6 % (0.0-2.0); Eosinophils # (auto) 0.2 10 ^3/uL (0-0.8); Eosinophils % (auto) 2.2 % (0.0-7.0); Hematocrit 41.1 % (36.0-46.0); Hemoglobin 13.7 g/dL (12.2-16.2); Lymphocytes % (auto) 26.9 % (10.0-50.0); Mean Corpuscular Hemoglobin 29.4 pg (28.0-32.0); Mean Corpuscular Hgb Conc. 33.4 g/dL (32.0-36.0); Monocytes # (auto) 0.4 10 ^3/uL (0-1.3); Neutrophils # (auto) 4.9 10 ^3/uL (1.6-8.6); Neutrophils % (auto) 65.3 % (37.0-80.0); Nucleated Red Blood Cells % 0.1 %; Platelet Count (auto) 188 10^3/uL (140-450); Red Blood Cells 4.67 10^6/uL (4.0-5.20); Red Cell Distribution Width 14.4 % (11.8-14.3); White Blood Cell 7.6 10^3/uL (4.4-10.8)
[2020-04-16 07:12] LABS: Albumin 3.1 g/dL (3.4-5.0); Calcium 7.9 mg/dL (8.5-10.1); Potassium 3.8 mmol/L (3.5-5.1)
[2020-04-16 07:15] LABS: BUN/Creatinine Ratio 15.2; Bilirubin, Total 0.5 mg/dL (0.2-1.0); Total Protein 6.5 g/dL (6.4-8.2)
[2020-04-16 09:05] VITALS: BP 141/86
[2020-04-16] MEDS: FAMOTIDINE 20 MG TAB PO SCH ×2 (09:23→21:26)
[2020-04-16] MEDS: cefTRIAXone 1GM/50ML D5W 50 ML IV SCH (09:23)
[2020-04-16] MEDS: MORPHINE SULF INJ 2 MG/ML SYRINGE 1ML IV PRN ×2 (10:47→15:34)
[2020-04-16] MEDS: PROMETHAZINE HCL 25 MG/ML 1ML IV PRN ×2 (10:47→15:34)
[2020-04-16 13:16] VITALS: BP 142/71
[2020-04-16 16:48] VITALS: BP 137/66
[2020-04-16 22:00] VITALS: BP 156/81
[2020-04-17] MEDS: MORPHINE SULF INJ 2 MG/ML SYRINGE 1ML IV PRN ×4 (04:30→21:24)
[2020-04-17 05:00] VITALS: BP 141/119
[2020-04-17] MEDS: metroNIDAZOLE 500MG/100ML 100 ML IV SCH ×3 (06:16→21:17)
[2020-04-17] MEDS ORDERED: ceFAZolin 1GM/50ML 50 ML IV ONE (07:03)
[2020-04-17] MEDS ORDERED: NEOSTIGMINE 1 MG/ML INJ (10mg/10ML VIAL) IV ONE (07:15)
[2020-04-17] MEDS ORDERED: GLYCOPYRROLATE 0.2 MG/ML 1ML VIAL IV ONE (07:15)
[2020-04-17] MEDS ORDERED: fentaNYL CITRATE 100 MCG/2 ML VL ONE (07:30)
[2020-04-17] MEDS ORDERED: MEPERIDINE HCL (50 MG/ML) 1 ML VIAL ONE (07:30)
[2020-04-17] MEDS ORDERED: MIDAZOLAM HCL 1MG/1ML-2 ML VIAL ONE (07:30)
[2020-04-17] MEDS ORDERED: DexAMETHasone SOD PHOS 10MG/1ML VIAL INJ ONE (07:31)
[2020-04-17] MEDS ORDERED: PROPOFOL 10 MG/ML 20 ML IV ONE (07:31)
[2020-04-17] MEDS ORDERED: SUCCINYLCHOLINE CHLORIDE 20 MG/ML 10ML VIAL IV ONE (07:33)
[2020-04-17] MEDS ORDERED: ROCURONIUM 10MG/ML 10ML VIAL IV ONE (07:50)
[2020-04-17] MEDS ORDERED: MIDAZOLAM HCL 1MG/1ML-2 ML VIAL IV PRN (08:15)
[2020-04-17] MEDS ORDERED: LABETALOL HCL 5 MG/ML 4ML SYRINGE IV PRN (08:15)
[2020-04-17] MEDS ORDERED: ePHEDrine SULFATE 50 MG/ML AMP IV PRN (08:15)
[2020-04-17] MEDS ORDERED: MORPHINE SULFATE 4 MG/ML SYR/VIAL IV PRN (08:15)
[2020-04-17] MEDS ORDERED: ONDANSETRON HCL 4 MG/2 ML VIAL IV PRN (08:15)
[2020-04-17] MEDS: HYDROmorphone HCL 2 MG/ML VL IV PRN ×2 (09:01→09:14)
[2020-04-17] MEDS ORDERED: ACETAMINOPHEN IV 100 ML IV ONE (09:26)
[2020-04-17] MEDS ORDERED: ACETAMINOPHEN IV 1000 MG/100ML (10MG/ML) IV ONE (09:30)
[2020-04-17] MEDS: PROMETHAZINE HCL 25 MG/ML 1ML IV PRN ×2 (12:20→16:13)
[2020-04-17] MEDS: FAMOTIDINE 20 MG TAB PO SCH ×2 (12:24→21:17)
[2020-04-17] MEDS: cefTRIAXone 1GM/50ML D5W 50 ML IV SCH (12:24)
[2020-04-17] MEDS: SODIUM CHLORIDE 0.9% 1,000 ML IV SCH ×3 (12:25→21:26)
[2020-04-17 12:32] VITALS: BP 139/79
[2020-04-17 17:13] VITALS: BP 153/76
[2020-04-17] MEDS: ALBUTEROL SULF 2.5 MG/0.5ML(0.5%) NEB SOLN NEB PRN (19:24)
[2020-04-17 22:00] VITALS: BP 151/100
[2020-04-18] MEDS: MORPHINE SULF INJ 2 MG/ML SYRINGE 1ML IV PRN ×5 (01:29→20:37)
[2020-04-18 05:00] VITALS: BP 150/73
[2020-04-18] MEDS: metroNIDAZOLE 500MG/100ML 100 ML IV SCH ×3 (05:15→22:04)
[2020-04-18 06:20] LABS: Basophils # (auto) 0 10 ^3/uL (0-0.2); Basophils % (auto) 0.2 % (0.0-2.0); Eosinophils # (auto) 0 10 ^3/uL (0-0.8); Hematocrit 39.6 % (36.0-46.0); Hemoglobin 13.4 g/dL (12.2-16.2); Lymphocytes # (auto) 1.3 10 ^3/uL (0.4-5.4); Lymphocytes % (auto) 11.7 % (10.0-50.0); Mean Corpuscular Hemoglobin 29.3 pg (28.0-32.0); Mean Corpuscular Hgb Conc. 33.8 g/dL (32.0-36.0); Mean Corpuscular Volume 86.9 fL (80.0-100.0); Monocytes # (auto) 0.5 10 ^3/uL (0-1.3); Monocytes % (auto) 4.8 % (0.0-12.0); Neutrophils # (auto) 9.2 10 ^3/uL (1.6-8.6); Neutrophils % (auto) 83.3 % (37.0-80.0); Platelet Count (auto) 198 10^3/uL (140-450); Red Blood Cells 4.56 10^6/uL (4.0-5.20); Red Cell Distribution Width 13.8 % (11.8-14.3); White Blood Cell 11.1 10^3/uL (4.4-10.8)
[2020-04-18 08:55] VITALS: BP 160/86
[2020-04-18] MEDS: FAMOTIDINE 20 MG TAB PO SCH ×2 (09:00→22:04)
[2020-04-18] MEDS: cefTRIAXone 1GM/50ML D5W 50 ML IV SCH (09:00)
[2020-04-18] MEDS: ALBUTEROL SULF 2.5 MG/0.5ML(0.5%) NEB SOLN NEB PRN ×2 (11:24→18:44)
[2020-04-18 12:30] VITALS: BP 148/99
[2020-04-18] MEDS: SODIUM CHLORIDE 0.9% 1,000 ML IV SCH ×2 (14:33→23:43)
[2020-04-18 16:25] VITALS: BP 131/72
[2020-04-18 19:35] VITALS: BP 131/72
[2020-04-18 22:00] VITALS: BP 129/72
[2020-04-19] MEDS: MORPHINE SULF INJ 2 MG/ML SYRINGE 1ML IV PRN ×2 (04:40→10:03)
[2020-04-19 05:00] VITALS: BP 132/67
[2020-04-19] MEDS: metroNIDAZOLE 500MG/100ML 100 ML IV SCH ×2 (05:51→14:00)
[2020-04-19 08:13] VITALS: BP 131/72
[2020-04-19] MEDS: FAMOTIDINE 20 MG TAB PO SCH (09:43)
[2020-04-19] MEDS: cefTRIAXone 1GM/50ML D5W 50 ML IV SCH (09:43)
[2020-04-19] MEDS: SODIUM CHLORIDE 0.9% 1,000 ML IV SCH (09:43)
[2020-04-19 12:30] VITALS: BP 156/76
== END 2020-04-19 15:35 | disposition home or self-care (01) | DRG 418 ==
LOC: ER 12:09 → OVERFLOW 12:10 → WEST WING 17:11
PROVIDERS: ADMIT Internal Medicine; ATTEND Family Medicine
PROC: 0FT44ZZ Resection of Gallbladder, Percutaneous Endoscopic Approach (ICD-10-PCS; principal; 2020-04-17 07:35)
DX: K80.12 Calculus of gallbladder with acute and chronic cholecystitis without obstruction (principal); N39.0 Urinary tract infection, site not specified; E86.0 Dehydration; E66.01 Morbid (severe) obesity due to excess calories; E78.5 Hyperlipidemia, unspecified; F17.210 Nicotine dependence, cigarettes, uncomplicated; I10 Essential (primary) hypertension; J45.909 Unspecified asthma, uncomplicated; K66.0 Peritoneal adhesions (postprocedural) (postinfection); K76.0 Fatty (change of) liver, not elsewhere classified; I25.10 Atherosclerotic heart disease of native coronary artery without angina pectoris; M19.90 Unspecified osteoarthritis, unspecified site; E11.65 Type 2 diabetes mellitus with hyperglycemia; F32.9 Major depressive disorder, single episode, unspecified; Z86.73 Personal history of transient ischemic attack (TIA), and cerebral infarction without residual deficits; Z79.899 Other long term (current) drug therapy; Z88.8 Allergy status to other drugs, medicaments and biological substances; Z68.39 Body mass index [BMI] 39.0-39.9, adult
CPT/HCPCS: 36415; 71045; 76705; 80053; 81001; 82150; 82247; 83690; 83735; 85025; 85610; 85730; 86850; 86900; 86901; 94640; 96361; 96374; G0378; J0131; J0330; J0690; J0696; J1100; J2250; J2704; J3490

== ENCOUNTER → 2020-05-27 | Outpatient (CLI) | payer OTHER, MEDICAID | END | disposition home or self-care (01) | LOC: LAB 14:25 | PROVIDERS: ATTEND Nurse Practitioner Family | DX: L02.415 Cutaneous abscess of right lower limb (principal) | CPT/HCPCS: 87075; 87205 ==

== ENCOUNTER → 2020-06-23 | Outpatient (CLI) | payer OTHER, MEDICAID ==
[2020-06-23 10:53] LABS: Basophils # (auto) 0.1 10 ^3/uL (0-0.2); Basophils % (auto) 1.1 % (0.0-2.0); Eosinophils # (auto) 0.2 10 ^3/uL (0-0.8); Eosinophils % (auto) 2.1 % (0.0-7.0); Hematocrit 42.7 % (36.0-46.0); Hemoglobin 14.3 g/dL (12.2-16.2); Lymphocytes # (auto) 2.1 10 ^3/uL (0.4-5.4); Lymphocytes % (auto) 27.5 % (10.0-50.0); Mean Corpuscular Hemoglobin 29.2 pg (28.0-32.0); Mean Corpuscular Hgb Conc. 33.6 g/dL (32.0-36.0); Mean Corpuscular Volume 87.1 fL (80.0-100.0); Monocytes # (auto) 0.3 10 ^3/uL (0-1.3); Monocytes % (auto) 4.6 % (0.0-12.0); Neutrophils # (auto) 4.8 10 ^3/uL (1.6-8.6); Neutrophils % (auto) 64.7 % (37.0-80.0); Platelet Count (auto) 192 10^3/uL (140-450); Red Blood Cells 4.91 10^6/uL (4.0-5.20); Red Cell Distribution Width 13.7 % (11.8-14.3); White Blood Cell 7.5 10^3/uL (4.4-10.8)
[2020-06-23 10:58] LABS: Urine Bacteria NONE SEEN /hpf (None Seen); Urine Blood Negative /uL (Negative); Urine Mucus FEW (None Seen); Urine Specific Gravity 1.022 (1.001-1.035); Urine WBC 3 /hpf (0 - 5)
[2020-06-23 11:23] LABS: Potassium 3.9 mmol/L (3.5-5.1)
[2020-06-23 11:34] LABS: Albumin 3.5 g/dL (3.4-5.0); BUN/Creatinine Ratio 14.5; Bilirubin, Total 0.7 mg/dL (0.2-1.0); Calcium 8.8 mg/dL (8.5-10.1); Total Protein 7.7 g/dL (6.4-8.2)
== END | disposition home or self-care (01) ==
LOC: LAB 10:37
PROVIDERS: ATTEND Internal Medicine
DX: E11.9 Type 2 diabetes mellitus without complications (principal)
CPT/HCPCS: 36415; 80053; 80061; 81001; 82043; 83036; 84439; 84443; 85025

== ENCOUNTER → 2020-08-21 | Outpatient (CLI) | payer OTHER, MEDICAID | END | disposition home or self-care (01) | LOC: US 09:49 | PROVIDERS: ATTEND Internal Medicine | DX: N63.11 Unspecified lump in the right breast, upper outer quadrant (principal); D24.1 Benign neoplasm of right breast; F32.9 Major depressive disorder, single episode, unspecified; F17.200 Nicotine dependence, unspecified, uncomplicated; F41.9 Anxiety disorder, unspecified; E78.5 Hyperlipidemia, unspecified; G40.909 Epilepsy, unspecified, not intractable, without status epilepticus; M19.90 Unspecified osteoarthritis, unspecified site; Z88.8 Allergy status to other drugs, medicaments and biological substances; Z86.73 Personal history of transient ischemic attack (TIA), and cerebral infarction without residual deficits | CPT/HCPCS: 10022; 19083; 76642; 76942; J2001 ==

== ENCOUNTER → 2021-01-04 | Outpatient (CLI) | payer OTHER, MEDICAID ==
[2021-01-04 12:00] LABS: Potassium 4.6 mmol/L (3.5-5.1)
[2021-01-04 12:11] LABS: Albumin 3.6 g/dL (3.4-5.0); BUN/Creatinine Ratio 20.5; Bilirubin, Total 0.6 mg/dL (0.2-1.0); Calcium 8.9 mg/dL (8.5-10.1); Total Protein 7.7 g/dL (6.4-8.2)
== END | disposition home or self-care (01) ==
LOC: LAB 10:22
PROVIDERS: ATTEND Internal Medicine
DX: E11.9 Type 2 diabetes mellitus without complications (principal); E78.5 Hyperlipidemia, unspecified
CPT/HCPCS: 36415; 80053; 80061; 83036

== ENCOUNTER → 2021-06-18 | Outpatient (CLI) | payer OTHER, MEDICAID ==
[2021-06-18 16:57] LABS: Albumin 3.6 g/dL (3.4-5.0); Calcium 8.6 mg/dL (8.5-10.1)
[2021-06-18 16:59] LABS: BUN/Creatinine Ratio 22.5
[2021-06-18 17:01] LABS: Bilirubin, Total 0.6 mg/dL (0.2-1.0); Total Protein 7.3 g/dL (6.4-8.2)
== END | disposition home or self-care (01) ==
LOC: LAB 15:42
PROVIDERS: ATTEND Internal Medicine
DX: I10 Essential (primary) hypertension (principal); E11.9 Type 2 diabetes mellitus without complications
CPT/HCPCS: 36415; 80053; 82607; 83036

== ENCOUNTER → 2021-12-26 | Outpatient (CLI) | payer OTHER, MEDICAID ==
[~2021-12-26] MED LIST changes: +AMIO200T4 PO; +AMIT25TA12 PO; -AMIT25TA9 PO; +ASPI1CHW15 PO; +ATOR20TA50 PO; +DILT120C12 PO; +ISOS10TA45 PO; +RIV20T PO
== END | disposition home or self-care (01) ==
LOC: LAB 13:02
PROVIDERS: ATTEND Nurse Practitioner Family
DX: Z11.52 Encounter for screening for COVID-19 (principal)
CPT/HCPCS: C9803; U0003

== ENCOUNTER 2021-12-31 15:25 | Inpatient (IN) | payer OTHER, MEDICAID ==
[~2021-12-31] VITALS: Ht 157.5 cm; Wt 89.8 kg
[~2021-12-31 15:25] MED LIST changes: -AMIO200T4 PO; -ASPI1CHW15 PO; -ATOR20TA50 PO; -DILT120C12 PO; -ISOS10TA45 PO; -RIV20T PO
[2021-12-31] MEDS ORDERED: ASPirin 81 mg TAB PO ONE (16:00)
[2021-12-31] MEDS ORDERED: dilTIAZem 25 MG/5 ML VIAL IV ONE (16:00)
[2021-12-31 16:12] LABS: Basophils # (auto) 0.2 10 ^3/uL (0-0.2); Basophils % (auto) 2.1 % (0.0-2.0); Eosinophils # (auto) 0.1 10 ^3/uL (0-0.8); Eosinophils % (auto) 1.4 % (0.0-7.0); Hematocrit 37.8 % (36.0-46.0); Hemoglobin 12.6 g/dL (12.2-16.2); Lymphocytes % (auto) 24.4 % (10.0-50.0); Mean Corpuscular Hemoglobin 29.1 pg (28.0-32.0); Mean Corpuscular Hgb Conc. 33.2 g/dL (32.0-36.0); Mean Corpuscular Volume 87.5 fL (80.0-100.0); Monocytes # (auto) 0.4 10 ^3/uL (0-1.3); Monocytes % (auto) 5.1 % (0.0-12.0); Neutrophils # (auto) 5.5 10 ^3/uL (1.6-8.6); Red Blood Cells 4.32 10^6/uL (4.0-5.20); Red Cell Distribution Width 13.5 % (11.8-14.3); White Blood Cell 8.1 10^3/uL (4.4-10.8)
[2021-12-31 16:19] LABS: Albumin 3.2 g/dL (3.4-5.0); Calcium 8.4 mg/dL (8.5-10.1); Potassium 3.4 mmol/L (3.5-5.1)
[2021-12-31 16:24] LABS: BUN/Creatinine Ratio 19.3; Bilirubin, Total 0.3 mg/dL (0.2-1.0); Total Protein 6.4 g/dL (6.4-8.2)
[2021-12-31] MEDS ORDERED: NITROGLYCERIN 0.4 MG SL TAB SL PRN (16:30)
[2021-12-31] MEDS ORDERED: dilTIAZem 125mg/125ml BAG KIT 125 ML IV SCH (16:30)
[2021-12-31] MEDS: HEPARIN DRIP/D5W 100UNITS/ML 250 ML IV SCH (16:30)
[2021-12-31] MEDS ORDERED: HEPARIN SODIUM (PORCINE) 5000 UNITS/ML 1ML VIAL IV ONE (16:30)
[2021-12-31 16:40] LABS: INR 1.1 (0.9-1.15); Partial Thromboplastin Time 27.9 sec (23.6-33.0)
[2021-12-31] MEDS ORDERED: AMIODARONE HCL 200 MG TAB PO ONE (17:00)
[2021-12-31] MEDS ORDERED: MAGNESIUM SULFATE 1GM/100ML 100 ML IV ONE (17:00)
[2021-12-31] MEDS ORDERED: POTASSIUM CHL 10MEQ/50ML 50 ML IV ONE (17:00)
[2021-12-31] MEDS ORDERED: AZITHROMYCIN 500MG/ 250ML 250 ML IV ONE (17:15)
[2021-12-31] MEDS ORDERED: METOCLOPRAMIDE HCL 5MG/ml INJ 2ml VIAL IV PRN (17:15)
[2021-12-31] MEDS ORDERED: IPRATROPIUM BROM 0.5 MG/2.5ML INH SOL NEB ONE (17:15)
[2021-12-31] MEDS ORDERED: hydrALAZINE HCL 20 MG/ML VL IV PRN (17:15)
[2021-12-31] MEDS ORDERED: BUDESONIDE (INHALATION) 0.5 MG/2 ML NEB NEB ONE (17:15)
[2021-12-31] MEDS ORDERED: METOPROLOL TARTRATE 1MG/1ML-5ML VIAL IV PRN (17:15)
[2021-12-31] MEDS ORDERED: DOCUSATE SOD 100 MG CAP PO PRN (17:15)
[2021-12-31] MEDS ORDERED: cefTRIAXone 1GM/50ML D5W 50 ML IV ONE (17:15)
[2021-12-31] MEDS ORDERED: FUROSEMIDE 40 MG/4 ML VIAL IV ONE (17:15)
[2021-12-31] MEDS ORDERED: FAMOTIDINE (10MG/ML) 2ML VL IV ONE (17:15)
[2021-12-31] MEDS ORDERED: POTASSIUM CHL 20 Meq TABLET PO ONE (17:30)
[2021-12-31] MEDS ORDERED: IPRATROPIUM BROM 0.5 MG/2.5ML INH SOL NEB SCH (18:00)
[2021-12-31] MEDS: FUROSEMIDE 40 MG/4 ML VIAL IV SCH (18:07)
[2021-12-31] MEDS: IPRATROPIUM BROM 0.5 MG/2.5ML INH SOL NEB SCH (19:06)
[2021-12-31] MEDS: BUDESONIDE (INHALATION) 0.5 MG/2 ML NEB NEB SCH (19:07)
[2021-12-31] MEDS: methylPREDNISolone SOD SUCC 40 MG/ML VL IV SCH (22:01)
[2021-12-31] MEDS: OXYBUTYNIN CHL 5 MG TAB PO SCH (22:03)
[2021-12-31] MEDS: ISOSORBIDE MONONITRATE 20 MG TAB PO SCH (22:04)
[2021-12-31] MEDS: MONTELUKAST SODIUM 10 MG TAB PO SCH (22:05)
[2021-12-31] MEDS: ATORVASTATIN 20 MG TAB PO SCH (22:05)
[2021-12-31] MEDS: POTASSIUM CHL 20 Meq TABLET PO SCH (22:05)
[2021-12-31] MEDS ORDERED: DIGOXIN 0.125 MG TAB PO ONE ×2 (22:30→23:00)
[2021-12-31 23:20] LABS: INR 1.09 (0.9-1.15); Partial Thromboplastin Time 28.4 sec (23.6-33.0)
[2022-01-01] MEDS: MORPHINE SULFATE INJECTION 2 MG/ML SYRG IV PRN ×3 (01:54→19:12)
[2022-01-01] MEDS: IPRATROPIUM BROM 0.5 MG/2.5ML INH SOL NEB SCH ×4 (02:19→17:48)
[2022-01-01] MEDS: LEVALBUTEROL HCL 1.25 MG/3 ML NEB NEB SCH ×4 (02:19→17:48)
[2022-01-01] MEDS ORDERED: dilTIAZem 25 MG/5 ML VIAL IV ONE (04:30)
[2022-01-01 06:14] LABS: Basophils # (auto) 0 10 ^3/uL (0-0.2); Basophils % (auto) 0.3 % (0.0-2.0); Eosinophils # (auto) 0 10 ^3/uL (0-0.8); Eosinophils % (auto) 0.1 % (0.0-7.0); Hematocrit 40.4 % (36.0-46.0); Hemoglobin 13.2 g/dL (12.2-16.2); Lymphocytes # (auto) 0.8 10 ^3/uL (0.4-5.4); Lymphocytes % (auto) 10.8 % (10.0-50.0); Mean Corpuscular Hemoglobin 29.1 pg (28.0-32.0); Mean Corpuscular Hgb Conc. 32.7 g/dL (32.0-36.0); Mean Corpuscular Volume 88.9 fL (80.0-100.0); Monocytes # (auto) 0.1 10 ^3/uL (0-1.3); Monocytes % (auto) 1.1 % (0.0-12.0); Neutrophils # (auto) 6.8 10 ^3/uL (1.6-8.6); Neutrophils % (auto) 87.7 % (37.0-80.0); Red Blood Cells 4.54 10^6/uL (4.0-5.20); Red Cell Distribution Width 14.2 % (11.8-14.3); White Blood Cell 7.7 10^3/uL (4.4-10.8)
[2022-01-01 06:29] LABS: INR 1.11 (0.9-1.15); Partial Thromboplastin Time 35.8 sec (23.6-33.0)
[2022-01-01] MEDS: FUROSEMIDE 40 MG/4 ML VIAL IV SCH ×2 (06:35→19:07)
[2022-01-01 06:36] LABS: Magnesium 2.2 mg/dL (1.6-2.6)
[2022-01-01] MEDS: methylPREDNISolone SOD SUCC 40 MG/ML VL IV SCH ×2 (06:36→14:48)
[2022-01-01 06:41] LABS: Phosphorus 3.6 mg/dL (2.5-4.90); Uric Acid 6.4 mg/dL (2.6-6.0)
[2022-01-01] MEDS: HEPARIN DRIP/D5W 100UNITS/ML 250 ML IV SCH (08:20)
[2022-01-01] MEDS ORDERED: cefTRIAXone 1GM/50ML D5W 50 ML IV SCH (09:00)
[2022-01-01] MEDS ORDERED: AZITHROMYCIN 500MG/ 250ML 250 ML IV SCH (10:00)
[2022-01-01] MEDS ORDERED: AMIODARONE HCL 200 MG TAB PO SCH (10:00)
[2022-01-01] MEDS ORDERED: dilTIAZem 120MG ER CAP PO SCH (10:00)
[2022-01-01] MEDS: ASPirin 81 mg TAB PO SCH (10:24)
[2022-01-01] MEDS: FAMOTIDINE (10MG/ML) 2ML VL IV SCH (10:24)
[2022-01-01] MEDS: POTASSIUM CHL 20 Meq TABLET PO SCH (10:25)
[2022-01-01] MEDS: ISOSORBIDE MONONITRATE 20 MG TAB PO SCH ×2 (10:26→21:43)
[2022-01-01] MEDS: FLUoxetine HCL 20 MG CAP PO SCH (10:26)
[2022-01-01] MEDS: BUDESONIDE (INHALATION) 0.5 MG/2 ML NEB NEB SCH ×2 (11:31→17:47)
[2022-01-01 14:29] LABS: INR 1.1 (0.9-1.15); Partial Thromboplastin Time 41.4 sec (23.6-33.0)
[2022-01-01] MEDS: OXYBUTYNIN CHL 5 MG TAB PO SCH ×2 (14:47→21:42)
[2022-01-01] MEDS ORDERED: RIVAROXABAN 20 MG TAB PO SCH (18:00)
[2022-01-01] MEDS: AMIODARONE HCL 200 MG TAB PO SCH (21:42)
[2022-01-01] MEDS: ATORVASTATIN 20 MG TAB PO SCH (21:43)
[2022-01-01] MEDS: MONTELUKAST SODIUM 10 MG TAB PO SCH (21:43)
[2022-01-01 21:55] LABS: INR 1.11 (0.9-1.15); Partial Thromboplastin Time 57.7 sec (23.6-33.0)
[2022-01-02] MEDS: LEVALBUTEROL HCL 1.25 MG/3 ML NEB NEB SCH ×3 (00:53→13:10)
[2022-01-02] MEDS: IPRATROPIUM BROM 0.5 MG/2.5ML INH SOL NEB SCH ×3 (00:53→12:00)
[2022-01-02] MEDS: MORPHINE SULFATE INJECTION 2 MG/ML SYRG IV PRN ×2 (03:24→11:47)
[2022-01-02 04:29] LABS: BUN/Creatinine Ratio 19.6; Calcium 9.5 mg/dL (8.5-10.1); Potassium 4.2 mmol/L (3.5-5.1)
[2022-01-02 04:35] LABS: INR 1.08 (0.9-1.15); Partial Thromboplastin Time 38.4 sec (23.6-33.0)
[2022-01-02] MEDS: FUROSEMIDE 40 MG/4 ML VIAL IV SCH (06:26)
[2022-01-02] MEDS: BUDESONIDE (INHALATION) 0.5 MG/2 ML NEB NEB SCH (07:19)
[2022-01-02 08:38] LABS: INR 1.11 (0.9-1.15); Partial Thromboplastin Time 45.2 sec (23.6-33.0)
[2022-01-02] MEDS ORDERED: dilTIAZem 120MG ER CAP PO SCH (10:00)
[2022-01-02] MEDS ORDERED: POTASSIUM CHL 20 Meq TABLET PO SCH (10:00)
[2022-01-02] MEDS: AMIODARONE HCL 200 MG TAB PO SCH (10:21)
[2022-01-02] MEDS: OXYBUTYNIN CHL 5 MG TAB PO SCH (10:21)
[2022-01-02] MEDS: ASPirin 81 mg TAB PO SCH (10:21)
[2022-01-02] MEDS: FAMOTIDINE (10MG/ML) 2ML VL IV SCH (10:21)
[2022-01-02] MEDS: FLUoxetine HCL 20 MG CAP PO SCH (10:22)
[2022-01-02] MEDS: ISOSORBIDE MONONITRATE 20 MG TAB PO SCH (10:22)
[2022-01-02] MEDS ORDERED: ASPI1CHW15 PO (13:30)
[2022-01-02] MEDS ORDERED: ISOS10TA45 PO (13:30)
[2022-01-02] MEDS ORDERED: DILT120C12 PO (13:30)
[2022-01-02] MEDS ORDERED: AMIO200T4 PO (13:30)
[2022-01-02] MEDS ORDERED: ATOR20TA50 PO (13:30)
[2022-01-02] MEDS ORDERED: RIV20T PO (13:30)
[2022-01-02 13:50] VITALS: BP 125/55
[2022-01-02] MEDS ORDERED: RIVAROXABAN 20 MG TAB PO SCH (18:00)
== END 2022-01-02 14:07 | disposition home or self-care (01) | DRG 291 ==
LOC: ER 15:25 → OVERFLOW 16:27
PROVIDERS: ADMIT Hospitalist; ATTEND Internal Medicine
DX: I11.0 Hypertensive heart disease with heart failure (principal); J18.9 Pneumonia, unspecified organism; I50.43 Acute on chronic combined systolic (congestive) and diastolic (congestive) heart failure; J45.21 Mild intermittent asthma with (acute) exacerbation; N39.0 Urinary tract infection, site not specified; I16.9 Hypertensive crisis, unspecified; D68.69 Other thrombophilia; I48.91 Unspecified atrial fibrillation; K75.81 Nonalcoholic steatohepatitis (NASH); J43.9 Emphysema, unspecified; E66.01 Morbid (severe) obesity due to excess calories; E78.5 Hyperlipidemia, unspecified; Z20.822 Contact with and (suspected) exposure to COVID-19; F32.9 Major depressive disorder, single episode, unspecified; N39.41 Urge incontinence; E11.65 Type 2 diabetes mellitus with hyperglycemia; F17.210 Nicotine dependence, cigarettes, uncomplicated; Z83.3 Family history of diabetes mellitus; Z86.73 Personal history of transient ischemic attack (TIA), and cerebral infarction without residual deficits; Z90.49 Acquired absence of other specified parts of digestive tract; Z68.36 Body mass index [BMI] 36.0-36.9, adult
CPT/HCPCS: 36415; 71045; 80048; 80053; 80061; 83036; 83735; 83880; 84100; 84443; 84484; 84550; 85025; 85379; 85610; 85730; 86160; 87040; 87086; 87426; 93005; 93306; 94640; 96365; 96375; 99291; G0378; J0696; J3490

== ENCOUNTER 2022-08-07 20:25 | Inpatient (IN) | payer OTHER, MEDICAID ==
[~2022-08-07] VITALS: Ht 157.5 cm; Wt 95.6 kg
[~2022-08-07 20:25] MED LIST changes: +AMIO200T4 PO; -AMIT25TA12 PO; +ASPI1CHW15 PO; +ATOR20TA50 PO; +CAR3125T PO; -FLUO-125 PO; +FURO20TA3 PO; -GABA300C10 PO; +ISOS10TA45 PO; +MONT5CHW23 PO; -OMEP20TA PO; +RIV20T PO; +SACU1TAB PO; +TIOT1AER2 IN
[2022-08-07] MEDS ORDERED: SODIUM CHLORIDE 0.9% 1,000 ML IV ONE (22:00)
[2022-08-07] MEDS ORDERED: PANTOPRAZOLE 40 MG/10 ML VIAL INJ IV ONE (22:00)
[2022-08-07 23:35] LABS: Basophils # (auto) 0 10 ^3/uL (0-0.2); Basophils % (auto) 0.5 % (0.0-2.0); Eosinophils # (auto) 0 10 ^3/uL (0-0.8); Eosinophils % (auto) 0.3 % (0.0-7.0); Hematocrit 43.8 % (36.0-46.0); Hemoglobin 13.8 g/dL (12.2-16.2); Lymphocytes # (auto) 1.3 10 ^3/uL (0.4-5.4); Lymphocytes % (auto) 15.9 % (10.0-50.0); Mean Corpuscular Hemoglobin 26.8 pg (28.0-32.0); Mean Corpuscular Hgb Conc. 31.5 g/dL (32.0-36.0); Mean Corpuscular Volume 85.1 fL (80.0-100.0); Monocytes # (auto) 0.4 10 ^3/uL (0-1.3); Neutrophils # (auto) 6.3 10 ^3/uL (1.6-8.6); Neutrophils % (auto) 78.3 % (37.0-80.0); Red Blood Cells 5.15 10^6/uL (4.0-5.20); Red Cell Distribution Width 15.6 % (11.8-14.3)
[2022-08-07 23:52] LABS: Albumin 3.5 g/dL (3.4-5.0); Calcium 8.8 mg/dL (8.5-10.1)
[2022-08-08 00:01] LABS: BUN/Creatinine Ratio 17.8; Bilirubin, Total 1.1 mg/dL (0.2-1.0); Total Protein 7.4 g/dL (6.4-8.2)
[2022-08-08] MEDS ORDERED: ACETAMINOPHEN 325 MG TAB PO PRN (01:45)
[2022-08-08] MEDS ORDERED: FUROSEMIDE 40 MG/4 ML VIAL IV ONE (01:45)
[2022-08-08] MEDS ORDERED: DOCUSATE SOD 100 MG CAP PO PRN (01:45)
[2022-08-08] MEDS ORDERED: MORPHINE SULFATE INJ 2 MG/ml SYRG IV PRN (04:30)
[2022-08-08 04:42] LABS: Eosinophils # (auto) 0.1 10 ^3/uL (0-0.8); Hemoglobin 14.2 g/dL (12.2-16.2); Lymphocytes # (auto) 2.4 10 ^3/uL (0.4-5.4); Neutrophils # (auto) 5.1 10 ^3/uL (1.6-8.6); White Blood Cell 8.1 10^3/uL (4.4-10.8)
[2022-08-08 04:43] LABS: Basophils # (auto) 0 10 ^3/uL (0-0.2); Basophils % (auto) 0.5 % (0.0-2.0); Eosinophils % (auto) 0.8 % (0.0-7.0); Hematocrit 45.3 % (36.0-46.0); Lymphocytes % (auto) 29.6 % (10.0-50.0); Mean Corpuscular Hemoglobin 27.3 pg (28.0-32.0); Mean Corpuscular Hgb Conc. 31.3 g/dL (32.0-36.0); Mean Corpuscular Volume 87.1 fL (80.0-100.0); Monocytes # (auto) 0.5 10 ^3/uL (0-1.3); Neutrophils % (auto) 63.1 % (37.0-80.0); Nucleated Red Blood Cells % 0.1 %; Red Cell Distribution Width 16.4 % (11.8-14.3)
[2022-08-08 05:02] LABS: Albumin 3.5 g/dL (3.4-5.0); Calcium 8.8 mg/dL (8.5-10.1); Potassium 3.9 mmol/L (3.5-5.1)
[2022-08-08 05:06] LABS: BUN/Creatinine Ratio 18.4; Bilirubin, Total 1.6 mg/dL (0.2-1.0); Total Protein 7.2 g/dL (6.4-8.2)
[2022-08-08] MEDS: SODIUM CHLOR 0.9% PF (SALINE LOCK) 10ML VIAL/SYR IV SCH ×3 (07:50→23:38)
[2022-08-08] MEDS: HYDROcodone-ACET 5/325MG TAB PO PRN (09:37)
[2022-08-08] MEDS: CARVEDILOL 3.125 MG TAB PO SCH ×2 (09:56→23:31)
[2022-08-08] MEDS: FUROSEMIDE 40 MG/4 ML VIAL IV SCH (09:56)
[2022-08-08] MEDS: FAMOTIDINE (10MG/ML) 2ML VL IV SCH ×2 (09:56→23:32)
[2022-08-08] MEDS: ASPirin 81 mg TAB PO SCH (09:57)
[2022-08-08 11:47] LABS: Urine Bacteria NONE SEEN /hpf (None Seen); Urine Blood Negative /uL (Negative); Urine Hyaline Cast MOD /lpf (0 - 2); Urine Specific Gravity 1.007 (1.001-1.035); Urine WBC 2 /hpf (0 - 5)
[2022-08-08 12:24] LABS: Alcohol, Urine < 3.0 mg/dL (0-10); Amphetamine Screen, Urine NEGATIVE (NEGATIVE); Barbiturate Scree,Urine NEGATIVE (NEGATIVE); Benzodiazephine Screen, Urine NEGATIVE (NEGATIVE); Cannabinoid Screen, Urine NEGATIVE (NEGATIVE); Cocaine Screen, Urine NEGATIVE (NEGATIVE); Opiate Scree,Urine NEGATIVE (NEGATIVE); Phencyclidine Screen, Urine NEGATIVE (NEGATIVE)
[2022-08-08] MEDS: ONDANSETRON HCL 4 MG/2 ML VIAL IV PRN (18:29)
[2022-08-08] MEDS: ATORVASTATIN 20 MG TAB PO SCH (23:32)
[2022-08-09] MEDS: HYDROcodone-ACET 5/325MG TAB PO PRN ×2 (03:48→21:29)
[2022-08-09 05:29] VITALS: BP 122/94
[2022-08-09 05:44] LABS: Basophils # (auto) 0.1 10 ^3/uL (0-0.2); Basophils % (auto) 0.8 % (0.0-2.0); Eosinophils # (auto) 0.2 10 ^3/uL (0-0.8); Eosinophils % (auto) 2.7 % (0.0-7.0); Hematocrit 40.5 % (36.0-46.0); Hemoglobin 13.2 g/dL (12.2-16.2); Lymphocytes % (auto) 28.5 % (10.0-50.0); Mean Corpuscular Hemoglobin 27.7 pg (28.0-32.0); Mean Corpuscular Hgb Conc. 32.7 g/dL (32.0-36.0); Mean Corpuscular Volume 84.6 fL (80.0-100.0); Monocytes # (auto) 0.4 10 ^3/uL (0-1.3); Monocytes % (auto) 6.1 % (0.0-12.0); Neutrophils # (auto) 4.4 10 ^3/uL (1.6-8.6); Neutrophils % (auto) 61.9 % (37.0-80.0); Nucleated Red Blood Cells % 0.2 %; Red Blood Cells 4.78 10^6/uL (4.0-5.20); Red Cell Distribution Width 16.2 % (11.8-14.3); White Blood Cell 7.1 10^3/uL (4.4-10.8)
[2022-08-09 05:54] LABS: Potassium 3.5 mmol/L (3.5-5.1)
[2022-08-09 06:02] LABS: Albumin 3.1 g/dL (3.4-5.0); Bilirubin, Total 1.7 mg/dL (0.2-1.0); Calcium 8.2 mg/dL (8.5-10.1); Total Protein 6.5 g/dL (6.4-8.2)
[2022-08-09] MEDS: SODIUM CHLOR 0.9% PF (SALINE LOCK) 10ML VIAL/SYR IV SCH ×3 (06:46→22:01)
[2022-08-09 09:00] VITALS: BP 115/66
[2022-08-09] MEDS: ASPirin 81 mg TAB PO SCH (10:35)
[2022-08-09] MEDS: CARVEDILOL 3.125 MG TAB PO SCH ×2 (10:35→21:31)
[2022-08-09] MEDS: FAMOTIDINE (10MG/ML) 2ML VL IV SCH ×2 (10:35→22:00)
[2022-08-09] MEDS: FUROSEMIDE 40 MG/4 ML VIAL IV SCH (10:36)
[2022-08-09 13:00] VITALS: BP 106/68
[2022-08-09] MEDS ORDERED: ENOXAPARIN SOD 40 MG/0.4 ML SYRINGE SC ONE (16:30)
[2022-08-09 17:00] VITALS: BP 112/63
[2022-08-09] MEDS: NITROGLYCERIN 0.4 MG SL TAB SL PRN (20:55)
[2022-08-09] MEDS: ATORVASTATIN 20 MG TAB PO SCH (22:01)
[2022-08-09 22:23] VITALS: BP 125/63
[2022-08-10] MEDS: NITROGLYCERIN 0.4 MG SL TAB SL PRN (02:54)
[2022-08-10] MEDS: HYDROcodone-ACET 5/325MG TAB PO PRN ×3 (02:59→21:59)
[2022-08-10 05:00] VITALS: BP 114/67
[2022-08-10] MEDS: SODIUM CHLOR 0.9% PF (SALINE LOCK) 10ML VIAL/SYR IV SCH ×3 (05:09→21:15)
[2022-08-10 06:29] LABS: Potassium 3.9 mmol/L (3.5-5.1)
[2022-08-10 06:34] LABS: BUN/Creatinine Ratio 25.6; Calcium 8.1 mg/dL (8.5-10.1)
[2022-08-10 09:00] VITALS: BP 110/42
[2022-08-10] MEDS ORDERED: ENOXAPARIN SOD 40 MG/0.4 ML SYRINGE SC SCH (10:00)
[2022-08-10 10:06] LABS: Basophils # (auto) 0.1 10 ^3/uL (0-0.2); Basophils % (auto) 1.2 % (0.0-2.0); Eosinophils # (auto) 0.2 10 ^3/uL (0-0.8); Hemoglobin 12.8 g/dL (12.2-16.2); Monocytes # (auto) 0.2 10 ^3/uL (0-1.3); Monocytes % (auto) 3.6 % (0.0-12.0); Nucleated Red Blood Cells % 0.1 %
[2022-08-10 10:15] LABS: Eosinophils % (auto) 3.1 % (0.0-7.0); Hematocrit 40.9 % (36.0-46.0); Lymphocytes % (auto) 32.7 % (10.0-50.0); Mean Corpuscular Hemoglobin 26.7 pg (28.0-32.0); Mean Corpuscular Hgb Conc. 31.4 g/dL (32.0-36.0); Mean Corpuscular Volume 85.2 fL (80.0-100.0); Neutrophils # (auto) 3.7 10 ^3/uL (1.6-8.6); Neutrophils % (auto) 59.4 % (37.0-80.0); White Blood Cell 6.3 10^3/uL (4.4-10.8)
[2022-08-10] MEDS: FAMOTIDINE (10MG/ML) 2ML VL IV SCH ×2 (10:41→22:49)
[2022-08-10] MEDS: CARVEDILOL 3.125 MG TAB PO SCH ×2 (10:43→21:48)
[2022-08-10] MEDS: ASPirin 81 mg TAB PO SCH (10:43)
[2022-08-10] MEDS: FUROSEMIDE 40 MG/4 ML VIAL IV SCH (10:44)
[2022-08-10] MEDS ORDERED: NITROGLYCERIN 0.4 MG SL TAB SL ONE (11:15)
[2022-08-10] MEDS ORDERED: NITROGLYCERIN 0.4 MG SL TAB SL PRN (11:15)
[2022-08-10 13:00] VITALS: BP 123/63
[2022-08-10] MEDS ORDERED: ENOXAPARIN SOD 100 MG/1 ML SYRINGE SC ONE (15:30)
[2022-08-10 16:55] VITALS: BP 96/44
[2022-08-10] MEDS: ATORVASTATIN 20 MG TAB PO SCH (21:48)
[2022-08-10] MEDS: ENOXAPARIN SOD 100 MG/1 ML SYRINGE SC SCH (21:48)
[2022-08-10 22:00] VITALS: BP 100/56
[2022-08-11 05:00] VITALS: BP 107/60
[2022-08-11] MEDS: ONDANSETRON HCL 4 MG/2 ML VIAL IV PRN (05:22)
[2022-08-11] MEDS: SODIUM CHLOR 0.9% PF (SALINE LOCK) 10ML VIAL/SYR IV SCH ×3 (05:36→21:37)
[2022-08-11] MEDS: HYDROcodone-ACET 5/325MG TAB PO PRN ×2 (08:52→19:56)
[2022-08-11 09:00] VITALS: BP 121/66
[2022-08-11] MEDS: FAMOTIDINE (10MG/ML) 2ML VL IV SCH (10:47)
[2022-08-11] MEDS: FUROSEMIDE 40 MG/4 ML VIAL IV SCH (10:47)
[2022-08-11] MEDS: ASPirin 81 mg TAB PO SCH (10:49)
[2022-08-11] MEDS: ENOXAPARIN SOD 100 MG/1 ML SYRINGE SC SCH (10:49)
[2022-08-11] MEDS: CARVEDILOL 3.125 MG TAB PO SCH ×2 (10:50→22:00)
[2022-08-11 11:36] LABS: Basophils # (auto) 0.1 10 ^3/uL (0-0.2); Eosinophils # (auto) 0.1 10 ^3/uL (0-0.8); Eosinophils % (auto) 2.3 % (0.0-7.0); Hemoglobin 13.4 g/dL (12.2-16.2); Lymphocytes # (auto) 1.6 10 ^3/uL (0.4-5.4); Mean Corpuscular Hemoglobin 26.8 pg (28.0-32.0); Mean Corpuscular Hgb Conc. 31.3 g/dL (32.0-36.0); Monocytes # (auto) 0.3 10 ^3/uL (0-1.3); Neutrophils # (auto) 3.2 10 ^3/uL (1.6-8.6); Nucleated Red Blood Cells % 0.2 %; Red Cell Distribution Width 15.8 % (11.8-14.3)
[2022-08-11 11:38] LABS: Hematocrit 42.9 % (36.0-46.0); Lymphocytes % (auto) 30.3 % (10.0-50.0); Mean Corpuscular Volume 85.7 fL (80.0-100.0); Monocytes % (auto) 6.2 % (0.0-12.0); Neutrophils % (auto) 60.2 % (37.0-80.0); White Blood Cell 5.3 10^3/uL (4.4-10.8)
[2022-08-11 11:57] LABS: Potassium 4.3 mmol/L (3.5-5.1)
[2022-08-11 12:01] LABS: BUN/Creatinine Ratio 25.3
[2022-08-11 17:00] VITALS: BP 116/43
[2022-08-11 22:00] VITALS: BP 95/39
[2022-08-11] MEDS: ATORVASTATIN 20 MG TAB PO SCH (22:39)
[2022-08-12] MEDS: HYDROcodone-ACET 5/325MG TAB PO PRN ×3 (01:32→17:29)
[2022-08-12 05:00] VITALS: BP 97/46
[2022-08-12] MEDS: SODIUM CHLOR 0.9% PF (SALINE LOCK) 10ML VIAL/SYR IV SCH ×3 (07:08→22:00)
[2022-08-12 09:00] VITALS: BP 115/58
[2022-08-12] MEDS: CARVEDILOL 3.125 MG TAB PO SCH ×2 (10:00→22:26)
[2022-08-12] MEDS: ASPirin 81 mg TAB PO SCH (10:22)
[2022-08-12] MEDS ORDERED: LACTULOSE 20Gm/30ML SOLN PO ONE (10:45)
[2022-08-12] MEDS ORDERED: ENOXAPARIN SOD 80 MG/0.8ML SYRINGE SC ONE (11:15)
[2022-08-12 13:00] VITALS: BP 100/33
[2022-08-12] MEDS: AMIODARONE HCL 200 MG TAB PO SCH ×2 (13:25→22:25)
[2022-08-12] MEDS: ONDANSETRON HCL 4 MG/2 ML VIAL IV PRN (16:47)
[2022-08-12 17:00] VITALS: BP 116/69
[2022-08-12 22:00] VITALS: BP 122/76
[2022-08-12] MEDS ORDERED: AMIODARONE HCL 200 MG TAB PO SCH (22:00)
[2022-08-12] MEDS: LACTULOSE 20Gm/30ML SOLN PO SCH (22:22)
[2022-08-12] MEDS: ENOXAPARIN SOD 80 MG/0.8ML SYRINGE SC SCH (22:23)
[2022-08-12] MEDS: ATORVASTATIN 20 MG TAB PO SCH (22:26)
[2022-08-13 05:00] VITALS: BP 116/61
[2022-08-13] MEDS: SODIUM CHLOR 0.9% PF (SALINE LOCK) 10ML VIAL/SYR IV SCH ×2 (05:54→14:11)
[2022-08-13 07:21] LABS: Calcium 8.6 mg/dL (8.5-10.1); Potassium 3.8 mmol/L (3.5-5.1)
[2022-08-13 07:22] LABS: Basophils # (auto) 0.1 10 ^3/uL (0-0.2); Basophils % (auto) 0.7 % (0.0-2.0); Eosinophils # (auto) 0.1 10 ^3/uL (0-0.8); Eosinophils % (auto) 1.4 % (0.0-7.0); Hematocrit 39.9 % (36.0-46.0); Hemoglobin 12.9 g/dL (12.2-16.2); Lymphocytes # (auto) 1.5 10 ^3/uL (0.4-5.4); Lymphocytes % (auto) 19.5 % (10.0-50.0); Mean Corpuscular Hemoglobin 27.6 pg (28.0-32.0); Mean Corpuscular Hgb Conc. 32.5 g/dL (32.0-36.0); Mean Corpuscular Volume 84.9 fL (80.0-100.0); Monocytes # (auto) 0.6 10 ^3/uL (0-1.3); Monocytes % (auto) 8.1 % (0.0-12.0); Neutrophils # (auto) 5.5 10 ^3/uL (1.6-8.6); Neutrophils % (auto) 70.3 % (37.0-80.0); Nucleated Red Blood Cells % 0.1 %; White Blood Cell 7.9 10^3/uL (4.4-10.8)
[2022-08-13 08:00] VITALS: BP 112/58
[2022-08-13] MEDS: ASPirin 81 mg TAB PO SCH (11:23)
[2022-08-13] MEDS: AMIODARONE HCL 200 MG TAB PO SCH (11:23)
[2022-08-13] MEDS: LACTULOSE 20Gm/30ML SOLN PO SCH (11:23)
[2022-08-13] MEDS: ENOXAPARIN SOD 80 MG/0.8ML SYRINGE SC SCH (11:24)
[2022-08-13] MEDS: CARVEDILOL 3.125 MG TAB PO SCH (11:25)
[2022-08-13] MEDS ORDERED: SACU1TAB PO (12:00)
[2022-08-13 13:00] VITALS: BP 120/77
[2022-08-13 14:30] VITALS: BP 120/77
== END 2022-08-13 15:15 | disposition home health service (06) | DRG 377 ==
LOC: ER 20:25 → EDBD 20:25 → TELE 08-08 04:25 → TELE-WESTW 08-08 21:31
PROVIDERS: ADMIT Nurse Practitioner Family; ATTEND Internal Medicine Nephrology
DX: K62.5 Hemorrhage of anus and rectum (principal); I21.A1 Myocardial infarction type 2; I50.23 Acute on chronic systolic (congestive) heart failure; D68.59 Other primary thrombophilia; I42.0 Dilated cardiomyopathy; N17.9 Acute kidney failure, unspecified; I48.91 Unspecified atrial fibrillation; D64.9 Anemia, unspecified; K46.9 Unspecified abdominal hernia without obstruction or gangrene; E66.9 Obesity, unspecified; E78.5 Hyperlipidemia, unspecified; Z20.822 Contact with and (suspected) exposure to COVID-19; F17.210 Nicotine dependence, cigarettes, uncomplicated; G47.33 Obstructive sleep apnea (adult) (pediatric); K64.9 Unspecified hemorrhoids; I11.0 Hypertensive heart disease with heart failure; F32.A Depression, unspecified; J45.909 Unspecified asthma, uncomplicated; Z83.3 Family history of diabetes mellitus; Z86.73 Personal history of transient ischemic attack (TIA), and cerebral infarction without residual deficits; Z90.49 Acquired absence of other specified parts of digestive tract; Z88.8 Allergy status to other drugs, medicaments and biological substances; Z68.38 Body mass index [BMI] 38.0-38.9, adult
CPT/HCPCS: 36415; 71045; 74176; 80048; 80053; 80307; 81001; 82270; 83036; 83605; 83690; 83880; 84484; 85025; 93005; 93306; 96361; 96374; 96375; 97163; C9113; G0378; J2405; J3490

== ENCOUNTER 2022-08-19 17:47 | Inpatient (IN) | payer OTHER, MEDICAID ==
[~2022-08-19] VITALS: Ht 157.5 cm; Wt 97.3 kg
[~2022-08-19 17:47] MED LIST changes: -ISOS10TA45 PO
[2022-08-19 19:10] LABS: Basophils # (auto) 0.1 10 ^3/uL (0-0.2); Eosinophils # (auto) 0.3 10 ^3/uL (0-0.8); Mean Corpuscular Hemoglobin 26.9 pg (28.0-32.0); Monocytes # (auto) 0.4 10 ^3/uL (0-1.3); Neutrophils # (auto) 4.6 10 ^3/uL (1.6-8.6)
[2022-08-19 19:12] LABS: Basophils % (auto) 0.8 % (0.0-2.0); Eosinophils % (auto) 4.2 % (0.0-7.0); Hematocrit 38.9 % (36.0-46.0); Hemoglobin 12.4 g/dL (12.2-16.2); Lymphocytes # (auto) 2.4 10 ^3/uL (0.4-5.4); Mean Corpuscular Hgb Conc. 31.8 g/dL (32.0-36.0); Mean Corpuscular Volume 84.6 fL (80.0-100.0); Monocytes % (auto) 5.1 % (0.0-12.0); Neutrophils % (auto) 58.9 % (37.0-80.0); Nucleated Red Blood Cells % 0.1 %; Red Cell Distribution Width 16.6 % (11.8-14.3); White Blood Cell 7.8 10^3/uL (4.4-10.8)
[2022-08-19 19:19] LABS: BUN/Creatinine Ratio 17.7; Calcium 8.2 mg/dL (8.5-10.1); Potassium 3.7 mmol/L (3.5-5.1)
[2022-08-19 19:22] LABS: Bilirubin, Total 1.5 mg/dL (0.2-1.0); Total Protein 6.5 g/dL (6.4-8.2)
[2022-08-19 22:42] LABS: Urine Bacteria NONE SEEN /hpf (None Seen); Urine Blood Negative /uL (Negative); Urine Hyaline Cast FEW /lpf (0 - 2); Urine Specific Gravity 1.016 (1.001-1.035); Urine WBC 33 /hpf (0 - 5)
[2022-08-20] MEDS ORDERED: ASPirin 81 mg TAB PO ONE (00:45)
[2022-08-20] MEDS ORDERED: FUROSEMIDE 20 MG/2 ML VIAL IV ONE (00:45)
[2022-08-20] MEDS ORDERED: ONDANSETRON HCL 4 MG/2 ML VIAL IV PRN (05:15)
[2022-08-20] MEDS ORDERED: NITROGLYCERIN 0.4 MG SL TAB SL PRN (05:15)
[2022-08-20] MEDS ORDERED: MORPHINE SULFATE INJ 2 MG/ml SYRG IV PRN (05:15)
[2022-08-20] MEDS: AMIODARONE HCL 200 MG TAB PO SCH ×3 (05:57→21:58)
[2022-08-20] MEDS: FUROSEMIDE 20 MG/2 ML VIAL IV SCH ×2 (06:05→18:18)
[2022-08-20 07:24] VITALS: BP 113/67
[2022-08-20] MEDS: ALBUTEROL SULF 2.5 MG/0.5ML(0.5%) NEB SOLN NEB PRN (08:23)
[2022-08-20] MEDS: cefTRIAXone 1GM/50ML D5W 50 ML IV SCH (09:10)
[2022-08-20] MEDS: PANTOPRAZOLE 40 MG TAB PO SCH (09:11)
[2022-08-20] MEDS: CARVEDILOL 3.125 MG TAB PO SCH ×2 (09:15→21:57)
[2022-08-20] MEDS ORDERED: SACUBITRIL-VALSARTAN 24mg/26mg TAB PO SCH (10:00)
[2022-08-20] MEDS ORDERED: PATIENTS OWN MEDICATION (xarelto 20 MG) PO SCH (10:00)
[2022-08-20] MEDS: ALPRAZolam 0.25 MG TAB PO PRN ×3 (12:15→22:03)
[2022-08-20 12:21] LABS: Albumin 3.2 g/dL (3.4-5.0); Calcium 8.4 mg/dL (8.5-10.1); Potassium 3.9 mmol/L (3.5-5.1)
[2022-08-20 12:23] LABS: Total Protein 6.4 g/dL (6.4-8.2)
[2022-08-20 12:28] LABS: Magnesium 2.3 mg/dL (1.6-2.6); Phosphorus 4.5 mg/dL (2.5-4.90)
[2022-08-20] MEDS ORDERED: ALBUMIN 5% 250 ML IV ONE (13:30)
[2022-08-20 14:58] LABS: Magnesium 2.2 mg/dL (1.6-2.6)
[2022-08-20 21:50] VITALS: BP 115/59
[2022-08-20] MEDS: ATORVASTATIN 20 MG TAB PO SCH (21:58)
[2022-08-20] MEDS: MONTELUKAST SODIUM 10 MG TAB PO SCH (21:58)
[2022-08-20 22:25] VITALS: BP 115/59
[2022-08-21 04:41] VITALS: BP 127/62
[2022-08-21 05:49] LABS: Basophils # (auto) 0.1 10 ^3/uL (0-0.2); Eosinophils # (auto) 0.2 10 ^3/uL (0-0.8); Hematocrit 38.2 % (36.0-46.0); Hemoglobin 12.2 g/dL (12.2-16.2); Monocytes # (auto) 0.5 10 ^3/uL (0-1.3); Nucleated Red Blood Cells % 0.1 %
[2022-08-21] MEDS: FUROSEMIDE 20 MG/2 ML VIAL IV SCH ×2 (05:50→18:00)
[2022-08-21 05:52] LABS: Basophils % (auto) 0.9 % (0.0-2.0); Eosinophils % (auto) 3.1 % (0.0-7.0); Lymphocytes % (auto) 28.5 % (10.0-50.0); Mean Corpuscular Hemoglobin 26.9 pg (28.0-32.0); Mean Corpuscular Volume 84.1 fL (80.0-100.0); Monocytes % (auto) 7.7 % (0.0-12.0); Neutrophils # (auto) 4.2 10 ^3/uL (1.6-8.6); Neutrophils % (auto) 59.8 % (37.0-80.0); Red Blood Cells 4.54 10^6/uL (4.0-5.20); Red Cell Distribution Width 16.4 % (11.8-14.3)
[2022-08-21 05:57] LABS: Calcium 8.2 mg/dL (8.5-10.1); Potassium 3.8 mmol/L (3.5-5.1)
[2022-08-21 06:02] LABS: BUN/Creatinine Ratio 25.9; Bilirubin, Total 0.8 mg/dL (0.2-1.0)
[2022-08-21 09:00] VITALS: BP 109/61
[2022-08-21] MEDS: cefTRIAXone 1GM/50ML D5W 50 ML IV SCH (11:18)
[2022-08-21] MEDS: AMIODARONE HCL 200 MG TAB PO SCH ×2 (11:20→21:03)
[2022-08-21] MEDS: PANTOPRAZOLE 40 MG TAB PO SCH (11:21)
[2022-08-21] MEDS: CARVEDILOL 3.125 MG TAB PO SCH ×2 (11:24→21:04)
[2022-08-21 12:41] VITALS: BP 120/72
[2022-08-21] MEDS ORDERED: FUROSEMIDE 20 MG/2 ML VIAL IV ONE (13:30)
[2022-08-21 17:00] VITALS: BP 102/59
[2022-08-21] MEDS: ATORVASTATIN 20 MG TAB PO SCH (21:03)
[2022-08-21] MEDS: MONTELUKAST SODIUM 10 MG TAB PO SCH (21:03)
[2022-08-21] MEDS: ALPRAZolam 0.25 MG TAB PO PRN (21:13)
[2022-08-21 21:30] VITALS: BP 101/41
[2022-08-21] MEDS: ALBUTEROL SULF 2.5 MG/0.5ML(0.5%) NEB SOLN NEB PRN (21:55)
[2022-08-21] MEDS ORDERED: RIVAROXABAN 15 MG TAB PO SCH (22:00)
[2022-08-21] MEDS ORDERED: PATIENTS OWN MEDICATION PO SCH (22:00)
[2022-08-21 23:35] LABS: Protein, Urine 36.5 mg/dL (0.0-11.9)
[2022-08-22 04:31] VITALS: BP 98/58
[2022-08-22] MEDS: FUROSEMIDE 20 MG/2 ML VIAL IV SCH (05:11)
[2022-08-22] MEDS ORDERED: HYDROcodone-ACET 5/325MG TAB PO PRN (05:15)
[2022-08-22 07:48] LABS: Potassium 3.6 mmol/L (3.5-5.1)
[2022-08-22 07:53] LABS: BUN/Creatinine Ratio 25.6; Calcium 8.2 mg/dL (8.5-10.1)
[2022-08-22 08:15] VITALS: BP 108/45
[2022-08-22 08:30] VITALS: BP 108/45
[2022-08-22] MEDS: cefTRIAXone 1GM/50ML D5W 50 ML IV SCH (10:17)
[2022-08-22] MEDS: CARVEDILOL 3.125 MG TAB PO SCH (10:17)
[2022-08-22] MEDS: AMIODARONE HCL 200 MG TAB PO SCH (10:17)
[2022-08-22 13:17] VITALS: BP 107/51
[2022-08-22] MEDS ORDERED: RIV15T PO (15:45)
[2022-08-22 16:28] VITALS: BP 107/51
== END 2022-08-22 17:00 | disposition home or self-care (01) | DRG 291 ==
LOC: ER 17:47 → TELE 08-20 05:15 → TELE-EAST 08-20 20:48
PROVIDERS: ADMIT Nurse Practitioner; ATTEND Internal Medicine
DX: I13.0 Hypertensive heart and chronic kidney disease with heart failure and stage 1 through stage 4 chronic kidney disease, or unspecified chronic kidney disease (principal); I50.43 Acute on chronic combined systolic (congestive) and diastolic (congestive) heart failure; N39.0 Urinary tract infection, site not specified; D68.9 Coagulation defect, unspecified; N17.9 Acute kidney failure, unspecified; I48.20 Chronic atrial fibrillation, unspecified; E11.22 Type 2 diabetes mellitus with diabetic chronic kidney disease; E66.01 Morbid (severe) obesity due to excess calories; N18.31 Chronic kidney disease, stage 3a; J45.909 Unspecified asthma, uncomplicated; F32.A Depression, unspecified; M19.90 Unspecified osteoarthritis, unspecified site; Z20.822 Contact with and (suspected) exposure to COVID-19; E78.5 Hyperlipidemia, unspecified; F17.210 Nicotine dependence, cigarettes, uncomplicated; I25.2 Old myocardial infarction; Z86.73 Personal history of transient ischemic attack (TIA), and cerebral infarction without residual deficits; Z68.39 Body mass index [BMI] 39.0-39.9, adult; Z88.8 Allergy status to other drugs, medicaments and biological substances; Z90.49 Acquired absence of other specified parts of digestive tract; Z83.3 Family history of diabetes mellitus; Z95.810 Presence of automatic (implantable) cardiac defibrillator; Z91.14 Patient's other noncompliance with medication regimen
CPT/HCPCS: 36415; 36600; 71045; 76775; 80048; 80053; 81001; 82570; 82607; 82805; 83735; 83880; 84100; 84156; 84300; 84484; 85025; 87081; 93005; 94640; 96365; 96367; 96375; G0378; J0696

== ENCOUNTER 2022-09-02 12:39 | Inpatient (IN) | payer OTHER, MEDICAID ==
[~2022-09-02] VITALS: Ht 167.6 cm; Wt 113.4 kg
[~2022-09-02 12:39] MED LIST changes: +RIV15T PO; -RIV20T PO
[2022-09-02] MEDS ORDERED: ASPirin 325 MG TAB PO ONE (13:00)
[2022-09-02 13:28] LABS: Basophils # (auto) 0.1 10 ^3/uL (0-0.2); Eosinophils # (auto) 0.2 10 ^3/uL (0-0.8); Lymphocytes # (auto) 1.5 10 ^3/uL (0.4-5.4); Lymphocytes % (auto) 24.8 % (10.0-50.0)
[2022-09-02 13:29] LABS: Basophils % (auto) 1.2 % (0.0-2.0); Hemoglobin 13.2 g/dL (12.2-16.2); Mean Corpuscular Hemoglobin 26.3 pg (28.0-32.0); Mean Corpuscular Hgb Conc. 31.4 g/dL (32.0-36.0); Mean Corpuscular Volume 83.8 fL (80.0-100.0); Monocytes # (auto) 0.3 10 ^3/uL (0-1.3); Monocytes % (auto) 5.2 % (0.0-12.0); Neutrophils % (auto) 65.8 % (37.0-80.0); Nucleated Red Blood Cells % 0.3 %; Red Blood Cells 5.01 10^6/uL (4.0-5.20); Red Cell Distribution Width 17.1 % (11.8-14.3); White Blood Cell 6.1 10^3/uL (4.4-10.8)
[2022-09-02 13:45] LABS: Albumin 3.1 g/dL (3.4-5.0); Calcium 8.6 mg/dL (8.5-10.1); Potassium 3.2 mmol/L (3.5-5.1)
[2022-09-02 13:48] LABS: BUN/Creatinine Ratio 16.5; Bilirubin, Total 1.5 mg/dL (0.2-1.0); Total Protein 6.4 g/dL (6.4-8.2)
[2022-09-02] MEDS ORDERED: LORazepam 2MG/ML-1ML VIAL IV ONE (15:00)
[2022-09-02] MEDS ORDERED: NITROGLYCERIN 0.4 MG SL TAB SL PRN (15:45)
[2022-09-02] MEDS ORDERED: POTASSIUM EFFERVESENT TAB 25 MEQ GT ONE (16:00)
[2022-09-02] MEDS ORDERED: DEXTROSE (50%) 50ML SYRG IV PRN (16:00)
[2022-09-02] MEDS ORDERED: ALBUTEROL SULF 2.5 MG/0.5ML(0.5%) NEB SOLN NEB PRN (16:00)
[2022-09-02] MEDS ORDERED: FUROSEMIDE 40 MG/4 ML VIAL IV ONE (16:00)
[2022-09-02 16:35] LABS: INR 1.34 (0.9-1.15)
[2022-09-02] MEDS: ACCU-CHEK COMFORT CURVE STRIP VI SCH ×2 (17:00→22:08)
[2022-09-02] MEDS: InsuLIN REG 1unit/0.01ml Soln (100units/ml) SC SCH ×2 (17:00→22:00)
[2022-09-02 17:10] VITALS: BP 133/67
[2022-09-02] MEDS: MORPHINE SULFATE INJ 2 MG/ml SYRG IV PRN (20:17)
[2022-09-02] MEDS ORDERED: SACUBITRIL-VALSARTAN 24mg/26mg TAB PO SCH (22:00)
[2022-09-02] MEDS ORDERED: OXYBUTYNIN CHL 5 MG TAB PO SCH (22:00)
[2022-09-02] MEDS: AMIODARONE HCL 200 MG TAB PO SCH (22:10)
[2022-09-02] MEDS: CARVEDILOL 3.125 MG TAB PO SCH (22:13)
[2022-09-02] MEDS: ATORVASTATIN 20 MG TAB PO SCH (22:14)
[2022-09-02] MEDS: RIVAROXABAN 15 MG TAB PO SCH (22:14)
[2022-09-02 22:29] VITALS: BP 129/55
[2022-09-03] VITALS (7 sets, daily range): BP systolic 104–141; BP diastolic 46–78
[2022-09-03] MEDS ORDERED: HYDROcodone-ACET 5/325MG TAB PO ONE (02:30)
[2022-09-03 05:54] LABS: Basophils # (auto) 0 10 ^3/uL (0-0.2); Basophils % (auto) 0.7 % (0.0-2.0); Eosinophils # (auto) 0.1 10 ^3/uL (0-0.8); Eosinophils % (auto) 2.4 % (0.0-7.0); Hematocrit 36.7 % (36.0-46.0); Hemoglobin 12.1 g/dL (12.2-16.2); Lymphocytes # (auto) 1.3 10 ^3/uL (0.4-5.4); Lymphocytes % (auto) 24.3 % (10.0-50.0); Mean Corpuscular Hemoglobin 27.4 pg (28.0-32.0); Mean Corpuscular Hgb Conc. 33.1 g/dL (32.0-36.0); Monocytes # (auto) 0.3 10 ^3/uL (0-1.3); Monocytes % (auto) 5.1 % (0.0-12.0); Neutrophils # (auto) 3.7 10 ^3/uL (1.6-8.6); Neutrophils % (auto) 67.5 % (37.0-80.0); Nucleated Red Blood Cells % 0.2 %; Red Blood Cells 4.42 10^6/uL (4.0-5.20); Red Cell Distribution Width 17.1 % (11.8-14.3); White Blood Cell 5.5 10^3/uL (4.4-10.8)
[2022-09-03] MEDS ORDERED: FUROSEMIDE 20 MG/2 ML VIAL IV SCH (06:00)
[2022-09-03 06:03] LABS: Calcium 8.5 mg/dL (8.5-10.1); Potassium 3.5 mmol/L (3.5-5.1)
[2022-09-03 06:06] LABS: BUN/Creatinine Ratio 17.4; Total Protein 6.2 g/dL (6.4-8.2)
[2022-09-03] MEDS: ACCU-CHEK COMFORT CURVE STRIP VI SCH ×4 (06:25→22:00)
[2022-09-03] MEDS: InsuLIN REG 1unit/0.01ml Soln (100units/ml) SC SCH ×4 (06:25→22:00)
[2022-09-03 08:52] LABS: Urine Bacteria FEW /hpf (None Seen); Urine Blood 3+ /uL (Negative); Urine Hyaline Cast MOD /lpf (0 - 2); Urine Mucus FEW (None Seen); Urine Specific Gravity 1.009 (1.001-1.035); Urine WBC 8 /hpf (0 - 5)
[2022-09-03] MEDS: CARVEDILOL 3.125 MG TAB PO SCH ×2 (10:00→22:41)
[2022-09-03] MEDS ORDERED: NICOTINE 7MG/24HR TOPICAL PATCH TD SCH (10:00)
[2022-09-03] MEDS: ASPirin 81 mg TAB PO SCH (11:36)
[2022-09-03] MEDS: AMIODARONE HCL 200 MG TAB PO SCH ×3 (12:25→22:41)
[2022-09-03] MEDS ORDERED: ALBUTEROL SULF 2.5 MG/0.5ML(0.5%) NEB SOLN NEB PRN (13:30)
[2022-09-03] MEDS ORDERED: FUROSEMIDE 40 MG/4 ML VIAL IV ONE (13:30)
[2022-09-03] MEDS ORDERED: ALBUMIN 25% 50 ML IV STA (14:27)
[2022-09-03] MEDS ORDERED: ALPRAZolam 0.5 MG TAB PO PRN (15:30)
[2022-09-03] MEDS: DIGOXIN 0.125 MG TAB PO SCH (16:52)
[2022-09-03] MEDS ORDERED: FUROSEMIDE 40 MG/4 ML VIAL IV SCH (18:00)
[2022-09-03] MEDS ORDERED: cefTRIAXone 1GM/50ML D5W 50 ML IV ONE (18:00)
[2022-09-03] MEDS: FUROSEMIDE 40 MG/4 ML VIAL IV SCH ×2 (18:45→18:54)
[2022-09-03] MEDS: ATORVASTATIN 20 MG TAB PO SCH (22:34)
[2022-09-03] MEDS: SACUBITRIL-VALSARTAN 24mg/26mg TAB PO SCH (22:35)
[2022-09-03] MEDS: RIVAROXABAN 15 MG TAB PO SCH (22:37)
[2022-09-04 05:00] VITALS: BP 115/43
[2022-09-04 06:24] LABS: Basophils # (auto) 0 10 ^3/uL (0-0.2); Eosinophils # (auto) 0.2 10 ^3/uL (0-0.8); Hemoglobin 11.6 g/dL (12.2-16.2); Lymphocytes # (auto) 1.3 10 ^3/uL (0.4-5.4); Mean Corpuscular Hemoglobin 26.2 pg (28.0-32.0); Monocytes # (auto) 0.4 10 ^3/uL (0-1.3); White Blood Cell 5.9 10^3/uL (4.4-10.8)
[2022-09-04 06:26] LABS: Basophils % (auto) 0.7 % (0.0-2.0); Eosinophils % (auto) 3.1 % (0.0-7.0); Hematocrit 36.3 % (36.0-46.0); Lymphocytes % (auto) 22.9 % (10.0-50.0); Mean Corpuscular Hgb Conc. 31.8 g/dL (32.0-36.0); Mean Corpuscular Volume 82.5 fL (80.0-100.0); Monocytes % (auto) 6.6 % (0.0-12.0); Neutrophils # (auto) 3.9 10 ^3/uL (1.6-8.6); Neutrophils % (auto) 66.7 % (37.0-80.0); Nucleated Red Blood Cells % 0.1 %; Red Blood Cells 4.41 10^6/uL (4.0-5.20); Red Cell Distribution Width 16.8 % (11.8-14.3)
[2022-09-04 06:28] LABS: Albumin 2.8 g/dL (3.4-5.0); BUN/Creatinine Ratio 16.3; Calcium 7.9 mg/dL (8.5-10.1); Potassium 3.3 mmol/L (3.5-5.1)
[2022-09-04 06:30] LABS: INR 1.88 (0.9-1.15); Partial Thromboplastin Time 44.1 sec (24.6-33.4)
[2022-09-04 06:31] LABS: Bilirubin, Total 1.7 mg/dL (0.2-1.0); Total Protein 5.6 g/dL (6.4-8.2)
[2022-09-04] MEDS: FUROSEMIDE 40 MG/4 ML VIAL IV SCH (06:42)
[2022-09-04] MEDS: InsuLIN REG 1unit/0.01ml Soln (100units/ml) SC SCH ×4 (06:57→22:00)
[2022-09-04] MEDS: ACCU-CHEK COMFORT CURVE STRIP VI SCH ×4 (06:57→22:00)
[2022-09-04 09:00] VITALS: BP 103/46
[2022-09-04] MEDS: MORPHINE SULFATE INJ 2 MG/ml SYRG IV PRN (09:13)
[2022-09-04] MEDS: CARVEDILOL 3.125 MG TAB PO SCH ×2 (10:00→22:08)
[2022-09-04] MEDS ORDERED: DIGOXIN 0.125 MG TAB PO SCH (10:00)
[2022-09-04] MEDS: cefTRIAXone 1GM/50ML D5W 50 ML IV SCH (10:17)
[2022-09-04] MEDS: ASPirin 81 mg TAB PO SCH (10:18)
[2022-09-04] MEDS: AMIODARONE HCL 200 MG TAB PO SCH ×2 (10:18→22:07)
[2022-09-04] MEDS: DIGOXIN 0.125 MG TAB PO SCH (10:19)
[2022-09-04] MEDS: SACUBITRIL-VALSARTAN 24mg/26mg TAB PO SCH ×2 (10:19→22:07)
[2022-09-04] MEDS ORDERED: POTASSIUM CHL 20 Meq TABLET PO ONE (11:00)
[2022-09-04 13:00] VITALS: BP 106/61
[2022-09-04] MEDS ORDERED: MONT10TA23 PO (14:58)
[2022-09-04 17:14] VITALS: BP 108/46
[2022-09-04 22:00] VITALS: BP 127/62
[2022-09-04] MEDS: MONTELUKAST SODIUM 10 MG TAB PO SCH (22:07)
[2022-09-04] MEDS: ATORVASTATIN 20 MG TAB PO SCH (22:07)
[2022-09-05 05:00] VITALS: BP 114/66
[2022-09-05] MEDS: InsuLIN REG 1unit/0.01ml Soln (100units/ml) SC SCH ×4 (06:33→22:00)
[2022-09-05] MEDS: ACCU-CHEK COMFORT CURVE STRIP VI SCH ×4 (06:33→22:14)
[2022-09-05 06:34] LABS: Anion Gap 9 (5-15); BUN/Creatinine Ratio 16.4; Blood Urea Nitrogen 12 mg/dL (7-18); Calcium 7.9 mg/dL (8.5-10.1); Carbon Dioxide 26 mmol/L (21-32); Chloride 107 mmol/L (98-107); GFR African American 102 mL/min; GFR Non-African American 84 mL/min; Glucose 99 mg/dL (74-106); Potassium 3.5 mmol/L (3.5-5.1); Sodium 142 mmol/L (136-145)
[2022-09-05] MEDS ORDERED: FUROSEMIDE 40 MG/4 ML VIAL IV SCH (07:00)
[2022-09-05 08:11] VITALS: BP 111/75
[2022-09-05] MEDS: ASPirin 81 mg TAB PO SCH (09:04)
[2022-09-05] MEDS: AMIODARONE HCL 200 MG TAB PO SCH ×2 (09:05→22:14)
[2022-09-05] MEDS: CARVEDILOL 3.125 MG TAB PO SCH ×2 (09:06→22:00)
[2022-09-05] MEDS: DIGOXIN 0.125 MG TAB PO SCH (09:06)
[2022-09-05] MEDS: SACUBITRIL-VALSARTAN 24mg/26mg TAB PO SCH ×2 (09:07→22:13)
[2022-09-05] MEDS: cefTRIAXone 1GM/50ML D5W 50 ML IV SCH (09:07)
[2022-09-05] MEDS ORDERED: POTASSIUM CHL 20 Meq TABLET PO SCH (10:00)
[2022-09-05 11:42] VITALS: BP 114/62
[2022-09-05 17:00] VITALS: BP 119/44
[2022-09-05] MEDS: FUROSEMIDE 40 MG TAB PO SCH (19:20)
[2022-09-05 22:00] VITALS: BP 102/52
[2022-09-05] MEDS: ATORVASTATIN 20 MG TAB PO SCH (22:12)
[2022-09-05] MEDS: POTASSIUM CHL 20 Meq TABLET PO SCH (22:13)
[2022-09-05] MEDS: MONTELUKAST SODIUM 10 MG TAB PO SCH (22:13)
[2022-09-05 22:47] VITALS: BP 102/52
[2022-09-06 05:00] VITALS: BP 126/65
[2022-09-06] MEDS: InsuLIN REG 1unit/0.01ml Soln (100units/ml) SC SCH ×4 (07:00→22:00)
[2022-09-06] MEDS: FUROSEMIDE 40 MG TAB PO SCH ×2 (07:06→17:47)
[2022-09-06] MEDS: ACCU-CHEK COMFORT CURVE STRIP VI SCH ×4 (07:07→23:11)
[2022-09-06 07:44] VITALS: BP 138/63
[2022-09-06] MEDS: SACUBITRIL-VALSARTAN 24mg/26mg TAB PO SCH ×2 (09:22→21:32)
[2022-09-06] MEDS: ASPirin 81 mg TAB PO SCH (09:23)
[2022-09-06] MEDS: CARVEDILOL 3.125 MG TAB PO SCH ×2 (09:23→21:29)
[2022-09-06] MEDS: DIGOXIN 0.125 MG TAB PO SCH (09:24)
[2022-09-06] MEDS: POTASSIUM CHL 20 Meq TABLET PO SCH ×2 (09:24→21:24)
[2022-09-06] MEDS: cefTRIAXone 1GM/50ML D5W 50 ML IV SCH (09:27)
[2022-09-06] MEDS: AMIODARONE HCL 200 MG TAB PO SCH ×2 (09:29→21:32)
[2022-09-06 11:57] VITALS: BP 100/66
[2022-09-06 16:22] VITALS: BP 103/67
[2022-09-06] MEDS: HYDROcodone-ACET 5/325MG TAB PO PRN (21:23)
[2022-09-06] MEDS: ATORVASTATIN 20 MG TAB PO SCH (21:23)
[2022-09-06] MEDS: MONTELUKAST SODIUM 10 MG TAB PO SCH (21:32)
[2022-09-06 22:00] VITALS: BP 123/50
[2022-09-07] MEDS: HYDROcodone-ACET 5/325MG TAB PO PRN ×3 (01:48→13:41)
[2022-09-07 04:47] VITALS: BP 113/65
[2022-09-07] MEDS: FUROSEMIDE 40 MG TAB PO SCH ×2 (05:38→17:25)
[2022-09-07] MEDS: ACCU-CHEK COMFORT CURVE STRIP VI SCH ×4 (06:15→22:38)
[2022-09-07] MEDS: InsuLIN REG 1unit/0.01ml Soln (100units/ml) SC SCH ×4 (06:16→22:00)
[2022-09-07 07:44] VITALS: BP 93/51
[2022-09-07] MEDS: DIGOXIN 0.125 MG TAB PO SCH (09:41)
[2022-09-07] MEDS: AMIODARONE HCL 200 MG TAB PO SCH ×2 (09:43→21:34)
[2022-09-07] MEDS: cefTRIAXone 1GM/50ML D5W 50 ML IV SCH (09:44)
[2022-09-07] MEDS: ASPirin 81 mg TAB PO SCH (09:46)
[2022-09-07] MEDS: SACUBITRIL-VALSARTAN 24mg/26mg TAB PO SCH ×2 (09:47→21:29)
[2022-09-07] MEDS: CARVEDILOL 3.125 MG TAB PO SCH ×2 (09:47→21:37)
[2022-09-07] MEDS: POTASSIUM CHL 20 Meq TABLET PO SCH ×2 (09:47→21:28)
[2022-09-07 12:15] VITALS: BP 120/63
[2022-09-07] MEDS ORDERED: PANTOPRAZOLE 40 MG TAB PO ONE (13:00)
[2022-09-07] MEDS ORDERED: ALBUTEROL SULF 2.5 MG/0.5ML(0.5%) NEB SOLN NEB PRN (15:00)
[2022-09-07 17:06] VITALS: BP 114/77
[2022-09-07] MEDS: ATORVASTATIN 20 MG TAB PO SCH (21:28)
[2022-09-07] MEDS: MONTELUKAST SODIUM 10 MG TAB PO SCH (21:29)
[2022-09-07 22:00] VITALS: BP 121/61
[2022-09-08] VITALS (11 sets, daily range): BP systolic 98–142; BP diastolic 46–83
[2022-09-08] MEDS: FUROSEMIDE 40 MG TAB PO SCH ×2 (05:40→18:04)
[2022-09-08 05:53] LABS: Basophils # (auto) 0 10 ^3/uL (0-0.2); Basophils % (auto) 0.9 % (0.0-2.0); Eosinophils # (auto) 0.2 10 ^3/uL (0-0.8); Eosinophils % (auto) 3.6 % (0.0-7.0); Hematocrit 38.2 % (36.0-46.0); Hemoglobin 12.1 g/dL (12.2-16.2); Lymphocytes # (auto) 1.4 10 ^3/uL (0.4-5.4); Lymphocytes % (auto) 26.2 % (10.0-50.0); Mean Corpuscular Hemoglobin 26.4 pg (28.0-32.0); Mean Corpuscular Hgb Conc. 31.7 g/dL (32.0-36.0); Mean Corpuscular Volume 83.2 fL (80.0-100.0); Monocytes # (auto) 0.4 10 ^3/uL (0-1.3); Monocytes % (auto) 7.2 % (0.0-12.0); Neutrophils # (auto) 3.3 10 ^3/uL (1.6-8.6); Neutrophils % (auto) 62.1 % (37.0-80.0); Nucleated Red Blood Cells % 0.1 %; Red Blood Cells 4.59 10^6/uL (4.0-5.20); Red Cell Distribution Width 16.6 % (11.8-14.3); White Blood Cell 5.4 10^3/uL (4.4-10.8)
[2022-09-08 05:58] LABS: INR 1.23 (0.9-1.15); Partial Thromboplastin Time 30.8 sec (24.6-33.4)
[2022-09-08 06:03] LABS: Albumin 3.1 g/dL (3.4-5.0); Calcium 8.3 mg/dL (8.5-10.1)
[2022-09-08 06:07] LABS: BUN/Creatinine Ratio 12.4; Bilirubin, Total 1.2 mg/dL (0.2-1.0); Total Protein 6.2 g/dL (6.4-8.2)
[2022-09-08 06:30] LABS: Potassium 3.6 mmol/L (3.5-5.1)
[2022-09-08] MEDS: ACCU-CHEK COMFORT CURVE STRIP VI SCH ×4 (06:38→22:00)
[2022-09-08] MEDS: InsuLIN REG 1unit/0.01ml Soln (100units/ml) SC SCH ×4 (06:38→22:49)
[2022-09-08] MEDS: cefTRIAXone 1GM/50ML D5W 50 ML IV SCH (09:16)
[2022-09-08] MEDS: ASPirin 81 mg TAB PO SCH (10:00)
[2022-09-08] MEDS: POTASSIUM CHL 20 Meq TABLET PO SCH ×2 (10:00→22:40)
[2022-09-08] MEDS: AMIODARONE HCL 200 MG TAB PO SCH ×2 (10:22→22:39)
[2022-09-08] MEDS: CARVEDILOL 3.125 MG TAB PO SCH ×2 (10:23→22:39)
[2022-09-08] MEDS: DIGOXIN 0.125 MG TAB PO SCH (10:23)
[2022-09-08] MEDS: PANTOPRAZOLE 40 MG TAB PO SCH (10:23)
[2022-09-08] MEDS: SACUBITRIL-VALSARTAN 24mg/26mg TAB PO SCH ×2 (10:24→22:39)
[2022-09-08 10:32] LABS: Urine Amorphous Crystal FEW /hpf (None Seen); Urine Bacteria NONE SEEN /hpf (None Seen); Urine Blood Negative /uL (Negative); Urine Specific Gravity 1.018 (1.001-1.035); Urine WBC 3 /hpf (0 - 5)
[2022-09-08] MEDS ORDERED: VANCOMYCIN HCL 1000 MG VL ONE (13:09)
[2022-09-08] MEDS ORDERED: VANCOMYCIN 1GM/250ML 250 ML IV ONE (13:09)
[2022-09-08] MEDS ORDERED: VERAPAMIL 2.5MG/ML INJ 2ML VIAL IV ONE (13:16)
[2022-09-08] MEDS ORDERED: MIDAZOLAM HCL 2MG/2ML 2ml VIAL (1mg/ml) ONE (13:17)
[2022-09-08] MEDS ORDERED: fentaNYL CITRATE 100 MCG/2 ML VL ONE (13:17)
[2022-09-08] MEDS ORDERED: LIDOCAINE 2%HCL (LOCAL ANESTH.) INJ 20ML MDV ONE (13:18)
[2022-09-08] MEDS ORDERED: IODIXANOL 320MG/ML 100ML BTL IV ONE (13:18)
[2022-09-08] MEDS ORDERED: ceFAZolin 1GM/50ML 50 ML IV SCH (15:15)
[2022-09-08] MEDS: ceFAZolin 1GM/50ML 50 ML IV SCH (18:05)
[2022-09-08] MEDS ORDERED: VANCOMYCIN 1GM/250ML 250 ML IV SCH ×2 (22:00)
[2022-09-08] MEDS: MONTELUKAST SODIUM 10 MG TAB PO SCH (22:35)
[2022-09-08] MEDS: ATORVASTATIN 20 MG TAB PO SCH (22:44)
[2022-09-09] MEDS: ceFAZolin 1GM/50ML 50 ML IV SCH ×3 (00:51→10:06)
[2022-09-09] MEDS: HYDROcodone-ACET 5/325MG TAB PO PRN ×2 (01:02→12:17)
[2022-09-09 05:00] VITALS: BP 131/54
[2022-09-09] MEDS: FUROSEMIDE 40 MG TAB PO SCH (05:47)
[2022-09-09] MEDS: ACCU-CHEK COMFORT CURVE STRIP VI SCH ×2 (05:53→11:30)
[2022-09-09] MEDS: InsuLIN REG 1unit/0.01ml Soln (100units/ml) SC SCH ×2 (06:40→12:17)
[2022-09-09] MEDS: cefTRIAXone 1GM/50ML D5W 50 ML IV SCH ×2 (09:00→10:06)
[2022-09-09] MEDS: POTASSIUM CHL 20 Meq TABLET PO SCH (10:06)
[2022-09-09] MEDS: PANTOPRAZOLE 40 MG TAB PO SCH (10:06)
[2022-09-09] MEDS: CARVEDILOL 3.125 MG TAB PO SCH (10:07)
[2022-09-09] MEDS: ASPirin 81 mg TAB PO SCH (10:07)
[2022-09-09] MEDS: DIGOXIN 0.125 MG TAB PO SCH (10:07)
[2022-09-09] MEDS: AMIODARONE HCL 200 MG TAB PO SCH (10:07)
[2022-09-09] MEDS: SACUBITRIL-VALSARTAN 24mg/26mg TAB PO SCH (10:08)
[2022-09-09] MEDS ORDERED: DOXY-286 PO (14:37)
[2022-09-09 15:42] VITALS: BP 130/65
== END 2022-09-09 17:15 | disposition home or self-care (01) | DRG 226 ==
LOC: ER 12:39 → EDBD 12:39 → TELE 15:40 → TELE-CENTR 09-03 08:56
PROVIDERS: ADMIT Registered Nurse; ATTEND Internal Medicine
PROC: 5A09357 Assistance with Respiratory Ventilation, Less than 24 Consecutive Hours, Continuous Positive Airway Pressure (ICD-10-PCS; 2022-09-02)
PROC: 0JH608Z Insertion of Defibrillator Generator into Chest Subcutaneous Tissue and Fascia, Open Approach (ICD-10-PCS; principal; 2022-09-08)
PROC: 02H63KZ Insertion of Defibrillator Lead into Right Atrium, Percutaneous Approach (ICD-10-PCS; 2022-09-08)
PROC: 02HK3KZ Insertion of Defibrillator Lead into Right Ventricle, Percutaneous Approach (ICD-10-PCS; 2022-09-08)
DX: I13.0 Hypertensive heart and chronic kidney disease with heart failure and stage 1 through stage 4 chronic kidney disease, or unspecified chronic kidney disease (principal); I50.43 Acute on chronic combined systolic (congestive) and diastolic (congestive) heart failure; J96.00 Acute respiratory failure, unspecified whether with hypoxia or hypercapnia; D68.59 Other primary thrombophilia; I47.1 Supraventricular tachycardia; I48.20 Chronic atrial fibrillation, unspecified; N39.0 Urinary tract infection, site not specified; Z68.41 Body mass index [BMI] 40.0-44.9, adult; J44.9 Chronic obstructive pulmonary disease, unspecified; F32.A Depression, unspecified; E11.22 Type 2 diabetes mellitus with diabetic chronic kidney disease; E66.01 Morbid (severe) obesity due to excess calories; E78.5 Hyperlipidemia, unspecified; Z20.822 Contact with and (suspected) exposure to COVID-19; I42.9 Cardiomyopathy, unspecified; E87.6 Hypokalemia; F17.210 Nicotine dependence, cigarettes, uncomplicated; N18.31 Chronic kidney disease, stage 3a; Z82.49 Family history of ischemic heart disease and other diseases of the circulatory system; Z83.3 Family history of diabetes mellitus; Z86.73 Personal history of transient ischemic attack (TIA), and cerebral infarction without residual deficits; Z91.14 Patient's other noncompliance with medication regimen; Z88.8 Allergy status to other drugs, medicaments and biological substances; Z90.49 Acquired absence of other specified parts of digestive tract; Z71.6 Tobacco abuse counseling; Z91.199 Patient's noncompliance with other medical treatment and regimen due to unspecified reason
CPT/HCPCS: 33249; 36415; 71045; 72125; 76536; 80048; 80053; 80162; 81001; 82962; 83735; 83880; 84484; 85025; 85610; 85730; 86850; 86900; 86901; 87081; 87426; 93005; 94640; 96374; 96375; 97116; 97530; 99152; 99153; G0378; J0690; J0696; J1815; J2250; Q9967

== ENCOUNTER 2022-10-01 16:12 | Inpatient (IN) | payer OTHER, MEDICAID ==
[~2022-10-01] VITALS: Ht 162.6 cm; Wt 92.6 kg
[~2022-10-01 16:12] MED LIST changes: +DOXY-286 PO; +MONT10TA23 PO; -MONT5CHW23 PO; -OXYB10TA14 PO; -SACU1TAB PO
[2022-10-01 16:24] VITALS: BP 144/106
[2022-10-01] MEDS ORDERED: SODIUM CHLORIDE 0.9% 1,000 ML IV ONE (17:00)
[2022-10-01] MEDS ORDERED: ONDANSETRON HCL 4 MG/2 ML VIAL IV ONE (17:00)
[2022-10-01 17:05] LABS: Basophils # (auto) 0.1 10 ^3/uL (0-0.2); Basophils % (auto) 0.8 % (0.0-2.0); Eosinophils # (auto) 0.1 10 ^3/uL (0-0.8); Eosinophils % (auto) 1.8 % (0.0-7.0); Hematocrit 39.9 % (36.0-46.0); Hemoglobin 12.8 g/dL (12.2-16.2); Lymphocytes # (auto) 1.4 10 ^3/uL (0.4-5.4); Lymphocytes % (auto) 19.5 % (10.0-50.0); Mean Corpuscular Hemoglobin 27.2 pg (28.0-32.0); Mean Corpuscular Hgb Conc. 32.2 g/dL (32.0-36.0); Mean Corpuscular Volume 84.3 fL (80.0-100.0); Monocytes # (auto) 0.4 10 ^3/uL (0-1.3); Monocytes % (auto) 5.9 % (0.0-12.0); Neutrophils # (auto) 5.2 10 ^3/uL (1.6-8.6); Nucleated Red Blood Cells % 0.1 %; Red Blood Cells 4.73 10^6/uL (4.0-5.20); White Blood Cell 7.2 10^3/uL (4.4-10.8)
[2022-10-01 17:06] LABS: Red Cell Distribution Width 21.6 % (11.8-14.3)
[2022-10-01 17:24] LABS: Albumin 3.3 g/dL (3.4-5.0); BUN/Creatinine Ratio 14.1; Calcium 8.4 mg/dL (8.5-10.1); Potassium 3.2 mmol/L (3.5-5.1)
[2022-10-01 17:33] LABS: Bilirubin, Total 3.1 mg/dL (0.2-1.0)
[2022-10-01] MEDS ORDERED: ACETAMINOPHEN 500 MG TAB PO ONE (18:00)
[2022-10-01] MEDS ORDERED: FUROSEMIDE 40 MG/4 ML VIAL IV ONE (19:00)
[2022-10-01] MEDS ORDERED: IOHEXOL 350 MG/ML 100ML IJ ONE (19:07)
[2022-10-01] MEDS ORDERED: MORPHINE SULFATE INJ 2 MG/ml SYRG IV PRN (19:15)
[2022-10-01] MEDS ORDERED: ONDANSETRON HCL 4 MG/2 ML VIAL IV PRN (19:15)
[2022-10-01] MEDS ORDERED: DOCUSATE SOD 100 MG CAP PO PRN (19:15)
[2022-10-01] MEDS ORDERED: NITROGLYCERIN 0.4 MG SL TAB SL PRN (19:15)
[2022-10-01] MEDS ORDERED: POTASSIUM EFFERVESENT TAB 25 MEQ PO ONE (19:30)
[2022-10-01] MEDS ORDERED: PANTOPRAZOLE 40 MG TAB PO ONE (19:32)
[2022-10-01] MEDS ORDERED: ENOXAPARIN SOD 80 MG/0.8ML SYRINGE SC ONE (19:45)
[2022-10-01 19:55] LABS: Cholesterol 111 mg/dL (< 200); Triglycerides 108 mg/dL (< 150)
[2022-10-01 19:57] LABS: HDL Cholesterol 28 mg/dL (40-59); LDL Cholesterol 78 mg/dL (< 100)
[2022-10-01 19:59] LABS: INR 2.03 (0.9-1.15)
[2022-10-01] MEDS ORDERED: LORazepam 0.5 MG TAB PO ONE (20:45)
[2022-10-01 21:27] LABS: Urine Bacteria MANY /hpf (None Seen); Urine Mucus FEW (None Seen); Urine WBC 6 /hpf (0 - 5)
[2022-10-01 21:29] LABS: Urine Blood Negative /uL (Negative)
[2022-10-01] MEDS: SODIUM CHLOR 0.9% PF (SALINE LOCK) 10ML VIAL/SYR IV SCH (22:10)
[2022-10-01] MEDS: ATORVASTATIN 20 MG TAB PO SCH (22:17)
[2022-10-01] MEDS: ENOXAPARIN SOD 80 MG/0.8ML SYRINGE SC SCH (22:17)
[2022-10-01] MEDS: AMIODARONE HCL 200 MG TAB PO SCH (22:17)
[2022-10-01] MEDS: CARVEDILOL 3.125 MG TAB PO SCH (22:18)
[2022-10-01] MEDS: ALBUTEROL SULF 2.5 MG/0.5ML(0.5%) NEB SOLN NEB PRN (23:10)
[2022-10-02] MEDS ORDERED: IPRATROPIUM BROM 0.5 MG/2.5ML INH SOL NEB SCH
[2022-10-02] MEDS ORDERED: cefTRIAXone 1GM/50ML D5W 50 ML IV STA (00:16)
[2022-10-02] MEDS ORDERED: POTASSIUM CHL 20 Meq TABLET PO ONE ×2 (00:30→12:00)
[2022-10-02 03:08] VITALS: BP 157/78
[2022-10-02] MEDS ORDERED: LORazepam 2MG/ML-1ML VIAL IV ONE (03:45)
[2022-10-02 05:23] LABS: Basophils # (auto) 0.1 10 ^3/uL (0-0.2); Basophils % (auto) 1.1 % (0.0-2.0); Eosinophils # (auto) 0.2 10 ^3/uL (0-0.8); Eosinophils % (auto) 3.9 % (0.0-7.0); Hematocrit 34.8 % (36.0-46.0); Hemoglobin 11.3 g/dL (12.2-16.2); Lymphocytes # (auto) 1.7 10 ^3/uL (0.4-5.4); Lymphocytes % (auto) 27.7 % (10.0-50.0); Mean Corpuscular Hemoglobin 27.4 pg (28.0-32.0); Mean Corpuscular Hgb Conc. 32.6 g/dL (32.0-36.0); Mean Corpuscular Volume 83.9 fL (80.0-100.0); Monocytes # (auto) 0.4 10 ^3/uL (0-1.3); Monocytes % (auto) 6.1 % (0.0-12.0); Neutrophils # (auto) 3.8 10 ^3/uL (1.6-8.6); Neutrophils % (auto) 61.2 % (37.0-80.0); Nucleated Red Blood Cells % 0.1 %; Red Blood Cells 4.15 10^6/uL (4.0-5.20); White Blood Cell 6.2 10^3/uL (4.4-10.8)
[2022-10-02 05:26] LABS: Red Cell Distribution Width 21.2 % (11.8-14.3)
[2022-10-02 05:34] LABS: Calcium 8.2 mg/dL (8.5-10.1); Potassium 3.3 mmol/L (3.5-5.1)
[2022-10-02 05:38] LABS: BUN/Creatinine Ratio 17.4; Bilirubin, Total 2.9 mg/dL (0.2-1.0); Total Protein 6.3 g/dL (6.4-8.2)
[2022-10-02] MEDS: SODIUM CHLOR 0.9% PF (SALINE LOCK) 10ML VIAL/SYR IV SCH ×3 (05:49→22:00)
[2022-10-02] MEDS ORDERED: IPRATROPIUM BROM 0.5 MG/2.5ML INH SOL NEB PRN ×2 (06:00)
[2022-10-02 06:19] VITALS: BP 139/65
[2022-10-02 08:17] VITALS: BP 147/81
[2022-10-02] MEDS ORDERED: cefTRIAXone 1GM/50ML D5W 50 ML IV SCH (09:00)
[2022-10-02] MEDS ORDERED: FUROSEMIDE 20 MG/2 ML VIAL IV SCH (10:00)
[2022-10-02] MEDS: AMIODARONE HCL 200 MG TAB PO SCH ×2 (10:15→21:44)
[2022-10-02] MEDS: MONTELUKAST SODIUM 10 MG TAB PO SCH (10:15)
[2022-10-02] MEDS: PANTOPRAZOLE 40 MG TAB PO SCH (10:16)
[2022-10-02] MEDS: CARVEDILOL 3.125 MG TAB PO SCH ×2 (10:16→21:45)
[2022-10-02] MEDS: ASPirin-EC 81 mg tab PO SCH (10:17)
[2022-10-02] MEDS: ENOXAPARIN SOD 80 MG/0.8ML SYRINGE SC SCH (10:17)
[2022-10-02] MEDS: FUROSEMIDE 20 MG/2 ML VIAL IV SCH ×2 (15:27→21:45)
[2022-10-02 18:14] VITALS: BP 105/75
[2022-10-02 18:40] VITALS: BP 105/75
[2022-10-02] MEDS: ALBUTEROL SULF 2.5 MG/0.5ML(0.5%) NEB SOLN NEB PRN (21:37)
[2022-10-02] MEDS: ATORVASTATIN 20 MG TAB PO SCH (21:45)
[2022-10-02 22:00] VITALS: BP 129/49
[2022-10-03 05:00] VITALS: BP 132/59
[2022-10-03] MEDS: SODIUM CHLOR 0.9% PF (SALINE LOCK) 10ML VIAL/SYR IV SCH ×3 (06:00→22:02)
[2022-10-03 06:49] LABS: BUN/Creatinine Ratio 14.9; Calcium 8.5 mg/dL (8.5-10.1); Potassium 3.8 mmol/L (3.5-5.1)
[2022-10-03] MEDS: FUROSEMIDE 20 MG/2 ML VIAL IV SCH ×3 (07:10→21:59)
[2022-10-03] MEDS: PANTOPRAZOLE 40 MG TAB PO SCH (08:51)
[2022-10-03] MEDS: RIVAROXABAN 10 MG TAB PO SCH (08:52)
[2022-10-03] MEDS: ASPirin-EC 81 mg tab PO SCH (08:52)
[2022-10-03] MEDS: MONTELUKAST SODIUM 10 MG TAB PO SCH (08:52)
[2022-10-03] MEDS: AMIODARONE HCL 200 MG TAB PO SCH ×2 (08:52→22:01)
[2022-10-03 08:56] VITALS: BP 164/77
[2022-10-03] MEDS: CARVEDILOL 3.125 MG TAB PO SCH ×2 (08:58→21:59)
[2022-10-03] MEDS ORDERED: traMADol HCL 50 MG TAB PO PRN (15:00)
[2022-10-03 16:18] VITALS: BP 130/67
[2022-10-03 22:00] VITALS: BP 132/44
[2022-10-03] MEDS: ATORVASTATIN 20 MG TAB PO SCH (22:01)
[2022-10-04 05:00] VITALS: BP 128/58
[2022-10-04] MEDS: FUROSEMIDE 20 MG/2 ML VIAL IV SCH ×3 (06:17→22:12)
[2022-10-04] MEDS: SODIUM CHLOR 0.9% PF (SALINE LOCK) 10ML VIAL/SYR IV SCH ×3 (06:17→22:12)
[2022-10-04 07:04] LABS: Potassium 3.5 mmol/L (3.5-5.1)
[2022-10-04 07:10] LABS: BUN/Creatinine Ratio 13.3; Calcium 8.8 mg/dL (8.5-10.1)
[2022-10-04 09:00] VITALS: BP 148/61
[2022-10-04] MEDS: RIVAROXABAN 10 MG TAB PO SCH (09:43)
[2022-10-04] MEDS: PANTOPRAZOLE 40 MG TAB PO SCH (09:43)
[2022-10-04] MEDS: ASPirin-EC 81 mg tab PO SCH (09:43)
[2022-10-04] MEDS: MONTELUKAST SODIUM 10 MG TAB PO SCH (09:43)
[2022-10-04] MEDS: AMIODARONE HCL 200 MG TAB PO SCH ×2 (09:44→22:11)
[2022-10-04] MEDS: CARVEDILOL 3.125 MG TAB PO SCH ×2 (09:44→22:12)
[2022-10-04 13:00] VITALS: BP 129/46
[2022-10-04 17:00] VITALS: BP 139/53
[2022-10-04 22:00] VITALS: BP 140/53
[2022-10-04] MEDS: ATORVASTATIN 20 MG TAB PO SCH (22:11)
[2022-10-05 01:43] VITALS: BP 128/68
[2022-10-05 05:00] VITALS: BP 112/50
[2022-10-05] MEDS: SODIUM CHLOR 0.9% PF (SALINE LOCK) 10ML VIAL/SYR IV SCH ×2 (06:29→14:00)
[2022-10-05] MEDS: FUROSEMIDE 20 MG/2 ML VIAL IV SCH ×2 (06:29→14:00)
[2022-10-05 08:40] VITALS: BP 135/56
[2022-10-05] MEDS: ASPirin-EC 81 mg tab PO SCH (10:13)
[2022-10-05] MEDS: AMIODARONE HCL 200 MG TAB PO SCH (10:13)
[2022-10-05] MEDS: MONTELUKAST SODIUM 10 MG TAB PO SCH (10:14)
[2022-10-05] MEDS: PANTOPRAZOLE 40 MG TAB PO SCH (10:14)
[2022-10-05] MEDS: RIVAROXABAN 10 MG TAB PO SCH (10:16)
[2022-10-05] MEDS: CARVEDILOL 3.125 MG TAB PO SCH (10:16)
[2022-10-05] MEDS ORDERED: POTASSIUM CHL 20 Meq TABLET PO ONE (11:45)
[2022-10-05 12:19] VITALS: BP 137/61
[2022-10-05 13:00] VITALS: BP 102/50
[2022-10-05 16:40] VITALS: BP 135/46
== END 2022-10-05 18:34 | disposition home or self-care (01) | DRG 291 ==
LOC: EDBD 16:12 → ER 16:12 → TELE 19:12 → TELE-WESTW 10-02 17:55
PROVIDERS: ADMIT Nurse Practitioner Family; ATTEND Internal Medicine
PROC: 5A09357 Assistance with Respiratory Ventilation, Less than 24 Consecutive Hours, Continuous Positive Airway Pressure (ICD-10-PCS; principal; 2022-10-02)
PROC: 5A09357 Assistance with Respiratory Ventilation, Less than 24 Consecutive Hours, Continuous Positive Airway Pressure (ICD-10-PCS; 2022-10-03)
PROC: 5A09357 Assistance with Respiratory Ventilation, Less than 24 Consecutive Hours, Continuous Positive Airway Pressure (ICD-10-PCS; 2022-10-05)
DX: I11.0 Hypertensive heart disease with heart failure (principal); I50.23 Acute on chronic systolic (congestive) heart failure; J96.00 Acute respiratory failure, unspecified whether with hypoxia or hypercapnia; E46 Unspecified protein-calorie malnutrition; I42.8 Other cardiomyopathies; E83.51 Hypocalcemia; E87.6 Hypokalemia; E66.01 Morbid (severe) obesity due to excess calories; E11.9 Type 2 diabetes mellitus without complications; E78.5 Hyperlipidemia, unspecified; F17.210 Nicotine dependence, cigarettes, uncomplicated; Z20.822 Contact with and (suspected) exposure to COVID-19; F32.A Depression, unspecified; F41.9 Anxiety disorder, unspecified; I48.91 Unspecified atrial fibrillation; J45.909 Unspecified asthma, uncomplicated; Z83.3 Family history of diabetes mellitus; Z68.35 Body mass index [BMI] 35.0-35.9, adult; Z88.8 Allergy status to other drugs, medicaments and biological substances; Z86.73 Personal history of transient ischemic attack (TIA), and cerebral infarction without residual deficits; Z91.199 Patient's noncompliance with other medical treatment and regimen due to unspecified reason; Z95.810 Presence of automatic (implantable) cardiac defibrillator; Z90.49 Acquired absence of other specified parts of digestive tract; Z71.3 Dietary counseling and surveillance
CPT/HCPCS: 36415; 36600; 71045; 71260; 74177; 80048; 80053; 80061; 81001; 82805; 83036; 83605; 83690; 83735; 83880; 84132; 84443; 84484; 85025; 85379; 85610; 87040; 87426; 87804; 93005; 93970; 94640; 94660; 96361; 96365; 96372; 96375; 96376; G0378; J0696

== ENCOUNTER 2023-11-04 16:08 | Inpatient (IN) | payer OTHER, MEDICAID ==
[~2023-11-04] VITALS: Ht 157.5 cm; Wt 76.3 kg
[~2023-11-04 16:08] MED LIST changes: +AMIO200T13 PO; -AMIO200T4 PO; +ASPI-736 PO; -ASPI1CHW15 PO; -DOXY-286 PO
[2023-11-04] MEDS ORDERED: DexAMETHasone SOD PHOS 10MG/1ML VIAL INJ IM ONE (16:30)
[2023-11-04] MEDS ORDERED: ALBUTEROL SULF 2.5 MG/0.5ML(0.5%) NEB SOLN NEB ONE (16:30)
[2023-11-04] MEDS ORDERED: IPRATROPIUM BROM 0.5 MG/2.5ML INH SOL NEB ONE (16:30)
[2023-11-04] MEDS ORDERED: dilTIAZem 25 MG/5 ML VIAL IV ONE ×2 (16:45→23:45)
[2023-11-04 17:00] LABS: Base Excess -5.4 mmol/L (-2.0-2.0)
[2023-11-04 17:10] LABS: Basophils # (auto) 0 10 ^3/uL (0-0.2); Basophils % (auto) 0.4 % (0.0-2.0); Eosinophils # (auto) 0.1 10 ^3/uL (0-0.8); Eosinophils % (auto) 0.7 % (0.0-7.0); Hematocrit 37.7 % (36.0-46.0); Hemoglobin 11.7 g/dL (12.2-16.2); Lymphocytes # (auto) 1.8 10 ^3/uL (0.4-5.4); Mean Corpuscular Hemoglobin 25.8 pg (28.0-32.0); Mean Corpuscular Hgb Conc. 31.1 g/dL (32.0-36.0); Monocytes # (auto) 0.5 10 ^3/uL (0-1.3); Monocytes % (auto) 6.4 % (0.0-12.0); Neutrophils # (auto) 5.5 10 ^3/uL (1.6-8.6); Neutrophils % (auto) 69.5 % (37.0-80.0); Nucleated Red Blood Cells % 0.1 %; Red Blood Cells 4.54 10^6/uL (4.0-5.20); White Blood Cell 7.9 10^3/uL (4.4-10.8)
[2023-11-04 17:24] LABS: Alanine Aminotransferase 14 U/L (7-40); Albumin 3.4 g/dL (3.2-4.8); Alkaline Phosphatase 117 U/L (46-116); Anion Gap 8 (5-15); Aspartate Aminotransferase 17 U/L (13-40); BUN/Creatinine Ratio 21.3 (10.0-20.0); Bilirubin, Total 2.1 mg/dL (0.2-1.0); Blood Urea Nitrogen 19 mg/dL (9-23); Calcium 8.4 mg/dL (8.7-10.4); Carbon Dioxide 21 mmol/L (20-30); Chloride 112 mmol/L (98-107); Glucose 103 mg/dL (74-106); Lipase 25 U/L (12-53); Magnesium 1.5 mg/dL (1.6-2.6); Potassium 3.9 mmol/L (3.5-5.1); Sodium 141 mmol/L (136-145); Total Protein 5.9 g/dL (5.7-8.2)
[2023-11-04 18:00] VITALS: PULSE 85; RESP 28; O2SAT 98
[2023-11-04] MEDS ORDERED: IOHEXOL 350 MG/ML 100ML IJ ONE ×2 (18:10→20:37)
[2023-11-04] MEDS ORDERED: PROMETHAZINE W/CODEINE 5 ML ORAL SYRUP PO ONE (18:30)
[2023-11-04 19:10] VITALS: PULSE 121; RESP 22; O2SAT 100
[2023-11-04 22:44] LABS: COVID19 ANTIGEN SOFIA FIA NEGATIVE (NEGATIVE)
[2023-11-04 22:45] LABS: Rapid Influenza A Negative (Negative)
[2023-11-04 22:46] LABS: Rapid Influenza B Negative (Negative)
[2023-11-05] VITALS (11 sets, daily range): BP systolic 101–140; BP diastolic 60–82; PULSE 93–180; RESP 18–20; TEMP 97.1–98.3; O2SAT 97–100
[2023-11-05] MEDS ORDERED: ONDANSETRON HCL 4 MG/2 ML VIAL IV PRN (03:30)
[2023-11-05] MEDS ORDERED: NITROGLYCERIN 0.4 MG SL TAB SL PRN (03:30)
[2023-11-05] MEDS ORDERED: FUROSEMIDE 100 MG/10ML VIAL IV ONE (03:30)
[2023-11-05] MEDS ORDERED: MORPHINE SULFATE INJ 2 MG/ml SYRG IV PRN (03:30)
[2023-11-05] MEDS ORDERED: ALBUTEROL SULF 2.5 MG/0.5ML(0.5%) NEB SOLN NEB PRN (03:30)
[2023-11-05] MEDS: MAGNESIUM SULFATE 1GM/100ML 100 ML IV SCH ×2 (04:42→05:51)
[2023-11-05 06:17] LABS: Urine Bacteria NONE SEEN /hpf (None Seen); Urine Blood Negative /uL (Negative); Urine Clarity Clear (Clear); Urine Color Colorless (Yellow); Urine Protein, UAD Negative (Negative); Urine Specific Gravity 1.014 (1.001-1.035); Urine Urobilinogen Normal (Negative); Urine WBC 1 /hpf (0 - 5); Urine pH 5.5 (5.0-8.0)
[2023-11-05] MEDS ORDERED: DOBUTamine 1000MCG/ML 250 ML IV SCH (08:15)
[2023-11-05] MEDS ORDERED: SACUBITRIL-VALSARTAN 24mg/26mg TAB PO SCH (10:00)
[2023-11-05] MEDS ORDERED: CARVEDILOL 3.125 MG TAB PO SCH (10:00)
[2023-11-05 11:24] LABS: Chloride 109 mmol/L (98-107); Potassium 3.7 mmol/L (3.5-5.1); Sodium 140 mmol/L (136-145)
[2023-11-05 11:25] LABS: Anion Gap 8 (5-15); Carbon Dioxide 23 mmol/L (20-30)
[2023-11-05 11:26] LABS: Calcium 8.5 mg/dL (8.7-10.4)
[2023-11-05] MEDS: ACETAMINOPHEN 325 MG TAB PO PRN ×2 (11:28→22:03)
[2023-11-05 11:30] LABS: Glucose 154 mg/dL (74-106)
[2023-11-05] MEDS: EMPAGLIFLOZIN 10 MG TAB PO SCH (11:30)
[2023-11-05] MEDS: AMIODARONE HCL 200 MG TAB PO SCH ×2 (11:30→22:03)
[2023-11-05] MEDS: SPIRONOLACTONE 25 MG TAB PO SCH (11:30)
[2023-11-05 11:31] LABS: BUN/Creatinine Ratio 14.2 (10.0-20.0); Blood Urea Nitrogen 16 mg/dL (9-23); Magnesium 1.8 mg/dL (1.6-2.6)
[2023-11-05] MEDS: LORazepam 2MG/ML-1ML VIAL IV PRN ×2 (12:55→22:07)
[2023-11-05] MEDS: FUROSEMIDE 20 MG/2 ML VIAL IV SCH (18:00)
[2023-11-05] MEDS ORDERED: FUROSEMIDE 20 MG/2 ML VIAL IV SCH (18:00)
[2023-11-05] MEDS: RIVAROXABAN 20 MG TAB PO SCH (19:52)
[2023-11-05] MEDS: ATORVASTATIN 20 MG TAB PO SCH (22:02)
[2023-11-06] VITALS (10 sets, daily range): BP systolic 108–143; BP diastolic 73–90; PULSE 86–153; RESP 18–86; TEMP 97.5–98.4; O2SAT 97–100
[2023-11-06] MEDS: LORazepam 2MG/ML-1ML VIAL IV PRN ×2 (04:19→12:28)
[2023-11-06] MEDS: EMPAGLIFLOZIN 10 MG TAB PO SCH (06:46)
[2023-11-06] MEDS: FUROSEMIDE 20 MG/2 ML VIAL IV SCH ×2 (06:46→18:16)
[2023-11-06 06:58] LABS: Alanine Aminotransferase 11 U/L (7-40); Albumin 3.4 g/dL (3.2-4.8); Alkaline Phosphatase 105 U/L (46-116); Anion Gap 12 (5-15); Aspartate Aminotransferase 17 U/L (13-40); BUN/Creatinine Ratio 16.1 (10.0-20.0); Blood Urea Nitrogen 18 mg/dL (9-23); Carbon Dioxide 19 mmol/L (20-30); Chloride 107 mmol/L (98-107); Glucose 117 mg/dL (74-106); Sodium 138 mmol/L (136-145)
[2023-11-06 06:59] LABS: Bilirubin, Total 1.3 mg/dL (0.2-1.0); Total Protein 6.1 g/dL (5.7-8.2)
[2023-11-06 07:00] LABS: Basophils # (auto) 0 10 ^3/uL (0-0.2); Eosinophils # (auto) 0 10 ^3/uL (0-0.8); Hemoglobin 12.1 g/dL (12.2-16.2); Monocytes # (auto) 0.5 10 ^3/uL (0-1.3); Monocytes % (auto) 4.9 % (0.0-12.0); Nucleated Red Blood Cells % 0.3 %
[2023-11-06 07:02] LABS: Hematocrit 38.2 % (36.0-46.0); Lymphocytes # (auto) 0.9 10 ^3/uL (0.4-5.4); Lymphocytes % (auto) 9.7 % (10.0-50.0); Mean Corpuscular Hemoglobin 26.3 pg (28.0-32.0); Mean Corpuscular Hgb Conc. 31.7 g/dL (32.0-36.0); Neutrophils % (auto) 85.4 % (37.0-80.0); Red Blood Cells 4.61 10^6/uL (4.0-5.20); Red Cell Distribution Width 16.7 % (11.8-14.3); White Blood Cell 9.4 10^3/uL (4.4-10.8)
[2023-11-06] MEDS: SPIRONOLACTONE 25 MG TAB PO SCH (09:51)
[2023-11-06] MEDS: AMIODARONE HCL 200 MG TAB PO SCH ×2 (09:51→22:33)
[2023-11-06] MEDS ORDERED: DIGOXIN (250MCG/ML) 2 ML AMPULE IV ONE ×3 (12:45→17:00)
[2023-11-06] MEDS ORDERED: MAGNESIUM SULFATE 1GM/100ML 100 ML IV ONE (12:45)
[2023-11-06] MEDS ORDERED: METOPROLOL TARTRATE 1MG/1ML-5ML VIAL IV ONE (14:15)
[2023-11-06] MEDS ORDERED: METOPROLOL TARTRATE 1MG/1ML-5ML VIAL IV PRN (14:15)
[2023-11-06] MEDS: RIVAROXABAN 20 MG TAB PO SCH (18:12)
[2023-11-06] MEDS: ATORVASTATIN 20 MG TAB PO SCH (22:33)
[2023-11-07] VITALS (9 sets, daily range): BP systolic 103–138; BP diastolic 44–82; PULSE 60–100; RESP 16–20; TEMP 97.3–98.1; O2SAT 95–100
[2023-11-07] MEDS: ACETAMINOPHEN 325 MG TAB PO PRN ×2 (01:15→07:06)
[2023-11-07] MEDS: FUROSEMIDE 20 MG/2 ML VIAL IV SCH ×2 (06:57→18:11)
[2023-11-07] MEDS: EMPAGLIFLOZIN 10 MG TAB PO SCH (07:07)
[2023-11-07 08:45] LABS: Basophils # (auto) 0 10 ^3/uL (0-0.2); Eosinophils # (auto) 0 10 ^3/uL (0-0.8); Eosinophils % (auto) 0.3 % (0.0-7.0); Lymphocytes # (auto) 1.3 10 ^3/uL (0.4-5.4); Mean Corpuscular Hemoglobin 25.7 pg (28.0-32.0); Monocytes # (auto) 0.5 10 ^3/uL (0-1.3); Nucleated Red Blood Cells % 0.1 %
[2023-11-07 08:48] LABS: Hematocrit 38.7 % (36.0-46.0); Hemoglobin 12.3 g/dL (12.2-16.2); Lymphocytes % (auto) 16.6 % (10.0-50.0); Mean Corpuscular Hgb Conc. 31.7 g/dL (32.0-36.0); Mean Corpuscular Volume 81.1 fL (80.0-100.0); Monocytes % (auto) 6.5 % (0.0-12.0); Neutrophils # (auto) 6.1 10 ^3/uL (1.6-8.6); Neutrophils % (auto) 76.6 % (37.0-80.0); Red Blood Cells 4.77 10^6/uL (4.0-5.20); Red Cell Distribution Width 16.7 % (11.8-14.3)
[2023-11-07 08:49] LABS: Chloride 104 mmol/L (98-107); Potassium 3.3 mmol/L (3.5-5.1); Sodium 140 mmol/L (136-145)
[2023-11-07 08:50] LABS: Anion Gap 7 (5-15); Carbon Dioxide 29 mmol/L (20-30)
[2023-11-07 08:55] LABS: Glucose 89 mg/dL (74-106)
[2023-11-07 08:56] LABS: BUN/Creatinine Ratio 21.5 (10.0-20.0); Blood Urea Nitrogen 23 mg/dL (9-23)
[2023-11-07] MEDS ORDERED: POTASSIUM CHL 20 Meq TABLET PO ONE (11:00)
[2023-11-07] MEDS: SPIRONOLACTONE 25 MG TAB PO SCH (12:07)
[2023-11-07] MEDS: AMIODARONE HCL 200 MG TAB PO SCH ×2 (12:07→22:49)
[2023-11-07] MEDS: DIGOXIN 0.125 MG TAB PO SCH (12:07)
[2023-11-07] MEDS: SACUBITRIL-VALSARTAN 24mg/26mg TAB PO SCH ×2 (12:08→22:50)
[2023-11-07] MEDS: METOPROLOL TARTRATE 25 MG TAB PO SCH ×2 (12:10→23:02)
[2023-11-07] MEDS: RIVAROXABAN 20 MG TAB PO SCH (18:12)
[2023-11-07] MEDS: ATORVASTATIN 20 MG TAB PO SCH (22:50)
[2023-11-08] VITALS (8 sets, daily range): BP systolic 108–126; BP diastolic 37–65; PULSE 53–91; RESP 17–20; TEMP 97.2–98.3; O2SAT 93–100
[2023-11-08] MEDS: FUROSEMIDE 20 MG/2 ML VIAL IV SCH ×2 (07:01→18:47)
[2023-11-08] MEDS: EMPAGLIFLOZIN 10 MG TAB PO SCH (07:02)
[2023-11-08] MEDS: SACUBITRIL-VALSARTAN 24mg/26mg TAB PO SCH ×2 (11:48→22:23)
[2023-11-08] MEDS: SPIRONOLACTONE 25 MG TAB PO SCH (11:52)
[2023-11-08] MEDS: METOPROLOL TARTRATE 25 MG TAB PO SCH ×2 (11:52→22:25)
[2023-11-08] MEDS: AMIODARONE HCL 200 MG TAB PO SCH ×2 (11:52→22:26)
[2023-11-08] MEDS: DIGOXIN 0.125 MG TAB PO SCH (11:53)
[2023-11-08] MEDS: ACETAMINOPHEN 325 MG TAB PO PRN (15:19)
[2023-11-08] MEDS: RIVAROXABAN 20 MG TAB PO SCH (18:47)
[2023-11-08] MEDS: ATORVASTATIN 20 MG TAB PO SCH (22:25)
[2023-11-09] VITALS (7 sets, daily range): BP systolic 90–122; BP diastolic 46–78; PULSE 51–105; RESP 17–18; TEMP 97.4–97.6; O2SAT 94–99
[2023-11-09] MEDS: FUROSEMIDE 20 MG/2 ML VIAL IV SCH (07:04)
[2023-11-09] MEDS: EMPAGLIFLOZIN 10 MG TAB PO SCH (07:08)
[2023-11-09] MEDS: DIGOXIN 0.125 MG TAB PO SCH (10:09)
[2023-11-09] MEDS: SACUBITRIL-VALSARTAN 24mg/26mg TAB PO SCH (10:09)
[2023-11-09] MEDS: AMIODARONE HCL 200 MG TAB PO SCH (10:10)
[2023-11-09] MEDS: METOPROLOL TARTRATE 25 MG TAB PO SCH (10:10)
[2023-11-09] MEDS: SPIRONOLACTONE 25 MG TAB PO SCH (10:10)
[2023-11-09] MEDS ORDERED: FURO1TAB31 PO (11:00)
[2023-11-09 11:16] LABS: Base Excess 4.7 mmol/L (-2.0-2.0)
== END 2023-11-09 14:45 | disposition home or self-care (01) | DRG 291 ==
LOC: ER 16:08 → EDBD 16:08 → TELE 11-05 03:30 → EAST 11-05 08:48 → TELE-EAST 11-05 18:47
PROVIDERS: ADMIT Nurse Practitioner; ATTEND Internal Medicine Pulmonary Disease
DX: I11.0 Hypertensive heart disease with heart failure (principal); I50.23 Acute on chronic systolic (congestive) heart failure; J96.01 Acute respiratory failure with hypoxia; R18.8 Other ascites; J91.8 Pleural effusion in other conditions classified elsewhere; J45.909 Unspecified asthma, uncomplicated; D64.9 Anemia, unspecified; I48.0 Paroxysmal atrial fibrillation; I42.8 Other cardiomyopathies; F32.A Depression, unspecified; Z20.822 Contact with and (suspected) exposure to COVID-19; I35.1 Nonrheumatic aortic (valve) insufficiency; E83.42 Hypomagnesemia; E66.01 Morbid (severe) obesity due to excess calories; E11.9 Type 2 diabetes mellitus without complications; E78.5 Hyperlipidemia, unspecified; F17.210 Nicotine dependence, cigarettes, uncomplicated; Z86.73 Personal history of transient ischemic attack (TIA), and cerebral infarction without residual deficits; Z68.31 Body mass index [BMI] 31.0-31.9, adult; Z95.810 Presence of automatic (implantable) cardiac defibrillator; Z83.3 Family history of diabetes mellitus
CPT/HCPCS: 36415; 36600; 71045; 71275; 74176; 76604; 80048; 80053; 80162; 81001; 82565; 82805; 83605; 83690; 83735; 83880; 84484; 85025; 85379; 87426; 87804; 93005; 93306; 94640; 96365; 96372; 96375; G0378; J1100

== ENCOUNTER 2023-11-19 09:24 | Inpatient (IN) | payer OTHER, MEDICAID ==
[~2023-11-19] VITALS: Ht 160 cm; Wt 79.2 kg
[~2023-11-19 09:24] MED LIST changes: -ALBUAER3 IN; +FURO1TAB31 PO; -FURO20TA3 PO
[2023-11-19] MEDS ORDERED: ONDANSETRON HCL 4 MG/2 ML VIAL IV ONE (09:45)
[2023-11-19] MEDS ORDERED: SODIUM CHLORIDE 0.9% 500 ML IVB ONE (09:45)
[2023-11-19] MEDS ORDERED: MORPHINE SULFATE 4 MG/ML SYR/VIAL IV ONE (09:45)
[2023-11-19 10:00] VITALS: PULSE 107; RESP 22; O2SAT 98
[2023-11-19 10:19] LABS: Basophils # (auto) 0.1 10 ^3/uL (0-0.2); Basophils % (auto) 0.8 % (0.0-2.0); Eosinophils # (auto) 0.1 10 ^3/uL (0-0.8); Lymphocytes # (auto) 1.7 10 ^3/uL (0.4-5.4); Lymphocytes % (auto) 24.3 % (10.0-50.0); Monocytes # (auto) 0.4 10 ^3/uL (0-1.3); Nucleated Red Blood Cells % 0.1 %
[2023-11-19 10:23] LABS: Eosinophils % (auto) 1.7 % (0.0-7.0); Hematocrit 38.2 % (36.0-46.0); Hemoglobin 12.3 g/dL (12.2-16.2); Mean Corpuscular Hemoglobin 25.8 pg (28.0-32.0); Mean Corpuscular Hgb Conc. 32.2 g/dL (32.0-36.0); Mean Corpuscular Volume 80.1 fL (80.0-100.0); Monocytes % (auto) 5.2 % (0.0-12.0); Neutrophils # (auto) 4.8 10 ^3/uL (1.6-8.6); Red Blood Cells 4.77 10^6/uL (4.0-5.20); Red Cell Distribution Width 17.8 % (11.8-14.3)
[2023-11-19 10:44] LABS: Alanine Aminotransferase 16 U/L (7-40); Albumin 3.6 g/dL (3.2-4.8); Alkaline Phosphatase 164 U/L (46-116); Anion Gap 7 (5-15); Aspartate Aminotransferase 15 U/L (13-40); BUN/Creatinine Ratio 17.7 (10.0-20.0); Blood Urea Nitrogen 14 mg/dL (9-23); Carbon Dioxide 24 mmol/L (20-30); Chloride 112 mmol/L (98-107); Glucose 88 mg/dL (74-106); Potassium 3.8 mmol/L (3.5-5.1); Sodium 143 mmol/L (136-145)
[2023-11-19 10:45] LABS: Bilirubin, Total 1.3 mg/dL (0.2-1.0)
[2023-11-19 11:00] LABS: INR 1.13 (0.9-1.15); Partial Thromboplastin Time 30.2 SEC (24.5-34.5); Prothrombin Time 11.8 sec (9.3-11.8)
[2023-11-19] MEDS ORDERED: ONDANSETRON HCL 4 MG/2 ML VIAL ONE (11:04)
[2023-11-19] MEDS ORDERED: MORPHINE SULFATE 4 MG/ML SYR/VIAL ONE (11:06)
[2023-11-19] MEDS ORDERED: DOCUSATE SOD 100 MG CAP PO PRN (13:30)
[2023-11-19] MEDS ORDERED: ONDANSETRON HCL 4 MG/2 ML VIAL IV PRN (13:30)
[2023-11-19 15:21] LABS: Lipase 20 U/L (12-53)
[2023-11-19 15:29] LABS: Urine Bacteria FEW /hpf (None Seen); Urine Blood Negative /uL (Negative); Urine Clarity Clear (Clear); Urine Color Yellow (Yellow); Urine Mucus FEW (None Seen); Urine Protein, UAD TRACE (Negative); Urine Specific Gravity 1.006 (1.001-1.035); Urine Urobilinogen Normal (Negative); Urine WBC <1 /hpf (0 - 5)
[2023-11-19] MEDS ORDERED: POTASSIUM CHL 20 Meq TABLET PO ONE ×2 (17:15→21:10)
[2023-11-19 20:27] VITALS: PULSE 98; RESP 30; O2SAT 97
[2023-11-19] MEDS ORDERED: RIVAROXABAN 15 MG TAB PO ONE (20:30)
[2023-11-19] MEDS ORDERED: FUROSEMIDE 40 MG/4 ML VIAL ONE (21:10)
[2023-11-19] MEDS ORDERED: cefTRIAXone 1GM/50ML D5W 50 ML IV ONE (21:11)
[2023-11-19] MEDS: cefTRIAXone 1GM/50ML D5W 50 ML IV SCH (21:19)
[2023-11-19] MEDS: FUROSEMIDE 40 MG/4 ML VIAL IV SCH (21:19)
[2023-11-19] MEDS ORDERED: SACUBITRIL-VALSARTAN 24mg/26mg TAB PO ONE (21:43)
[2023-11-19] MEDS ORDERED: ATORVASTATIN 20 MG TAB ONE (21:44)
[2023-11-19] MEDS ORDERED: AMIODARONE HCL 200 MG TAB ONE (21:44)
[2023-11-19] MEDS ORDERED: CARVEDILOL 3.125 MG TAB ONE (21:46)
[2023-11-19] MEDS: ATORVASTATIN 20 MG TAB PO SCH (21:51)
[2023-11-19] MEDS: SACUBITRIL-VALSARTAN 24mg/26mg TAB PO SCH (21:51)
[2023-11-19] MEDS: AMIODARONE HCL 200 MG TAB PO SCH (21:52)
[2023-11-19] MEDS: CARVEDILOL 3.125 MG TAB PO SCH (21:53)
[2023-11-20] VITALS (13 sets, daily range): BP systolic 108–139; BP diastolic 51–73; PULSE 72–106; RESP 16–20; TEMP 97.8–98.7; O2SAT 93–100
[2023-11-20] MEDS ORDERED: FUROSEMIDE 40 MG/4 ML VIAL ONE (05:37)
[2023-11-20] MEDS ORDERED: EMPAGLIFLOZIN 10 MG TAB ONE (05:38)
[2023-11-20] MEDS: EMPAGLIFLOZIN 10 MG TAB PO SCH (05:42)
[2023-11-20] MEDS: FUROSEMIDE 40 MG/4 ML VIAL IV SCH ×2 (05:42→17:55)
[2023-11-20 06:22] LABS: Basophils # (auto) 0 10 ^3/uL (0-0.2); Basophils % (auto) 0.8 % (0.0-2.0); Eosinophils # (auto) 0.2 10 ^3/uL (0-0.8); Monocytes # (auto) 0.4 10 ^3/uL (0-1.3); Neutrophils # (auto) 3.6 10 ^3/uL (1.6-8.6); White Blood Cell 5.7 10^3/uL (4.4-10.8)
[2023-11-20 06:25] LABS: Eosinophils % (auto) 3.1 % (0.0-7.0); Hematocrit 39.1 % (36.0-46.0); Lymphocytes # (auto) 1.5 10 ^3/uL (0.4-5.4); Lymphocytes % (auto) 25.8 % (10.0-50.0); Mean Corpuscular Hemoglobin 25.6 pg (28.0-32.0); Mean Corpuscular Hgb Conc. 30.6 g/dL (32.0-36.0); Mean Corpuscular Volume 83.5 fL (80.0-100.0); Monocytes % (auto) 7.2 % (0.0-12.0); Neutrophils % (auto) 63.1 % (37.0-80.0); Red Blood Cells 4.69 10^6/uL (4.0-5.20); Red Cell Distribution Width 18.5 % (11.8-14.3)
[2023-11-20 06:42] LABS: Alanine Aminotransferase 12 U/L (7-40); Albumin 3.1 g/dL (3.2-4.8); Alkaline Phosphatase 138 U/L (46-116); Anion Gap 13 (5-15); Aspartate Aminotransferase 30 U/L (13-40); BUN/Creatinine Ratio 8.2 (10.0-20.0); Blood Urea Nitrogen 6 mg/dL (9-23); Calcium 8.8 mg/dL (8.5-10.1); Carbon Dioxide 17 mmol/L (20-30); Chloride 111 mmol/L (98-107); Glucose 55 mg/dL (74-106); Sodium 141 mmol/L (136-145)
[2023-11-20 06:43] LABS: Bilirubin, Total 1.7 mg/dL (0.2-1.0); Total Protein 5.6 g/dL (5.7-8.2)
[2023-11-20] MEDS: cefTRIAXone 1GM/50ML D5W 50 ML IV SCH (09:34)
[2023-11-20] MEDS: AMIODARONE HCL 200 MG TAB PO SCH ×2 (09:35→22:18)
[2023-11-20] MEDS: CARVEDILOL 3.125 MG TAB PO SCH ×2 (09:35→22:23)
[2023-11-20] MEDS: SACUBITRIL-VALSARTAN 24mg/26mg TAB PO SCH ×2 (09:53→22:18)
[2023-11-20] MEDS: SPIRONOLACTONE 25 MG TAB PO SCH (09:54)
[2023-11-20] MEDS: ASPirin-EC 81 mg tab PO SCH (09:55)
[2023-11-20] MEDS ORDERED: DEXTROSE (50%) 50ML SYRG IV PRN (10:45)
[2023-11-20] MEDS: InsuLIN REG 1unit/0.01ml Soln (100units/ml) SC SCH ×3 (11:30→22:57)
[2023-11-20] MEDS: ACCU-CHEK COMFORT CURVE STRIP VI SCH ×3 (11:30→22:00)
[2023-11-20] MEDS: MORPHINE SULFATE INJ 2 MG/ml SYRG IV PRN (12:18)
[2023-11-20] MEDS ORDERED: MAGNESIUM SULFATE 1GM/100ML 100 ML IV ONE (12:45)
[2023-11-20 16:40] LABS: T3 Total 1.83 ng/mL (0.60-1.81)
[2023-11-20 16:41] LABS: Free T4 (Free Thyroxine) 2.56 ng/dL (0.89-1.76)
[2023-11-20] MEDS: RIVAROXABAN 15 MG TAB PO SCH (17:55)
[2023-11-20] MEDS: LEVALBUTEROL HCL 1.25 MG/3 ML NEB NEB PRN ×2 (18:13→23:44)
[2023-11-20] MEDS: ATORVASTATIN 20 MG TAB PO SCH (22:18)
[2023-11-21 05:14] VITALS: BP 114/53; PULSE 82; RESP 17; TEMP 97.9; O2SAT 99
[2023-11-21] MEDS: FUROSEMIDE 40 MG/4 ML VIAL IV SCH (05:41)
[2023-11-21 06:07] LABS: Basophils # (auto) 0 10 ^3/uL (0-0.2); Eosinophils # (auto) 0.2 10 ^3/uL (0-0.8); Monocytes # (auto) 0.4 10 ^3/uL (0-1.3)
[2023-11-21 06:11] LABS: Basophils % (auto) 0.7 % (0.0-2.0); Eosinophils % (auto) 3.5 % (0.0-7.0); Hematocrit 37.1 % (36.0-46.0); Lymphocytes % (auto) 17.4 % (10.0-50.0); Mean Corpuscular Hemoglobin 25.6 pg (28.0-32.0); Mean Corpuscular Hgb Conc. 32.4 g/dL (32.0-36.0); Monocytes % (auto) 7.7 % (0.0-12.0); Neutrophils # (auto) 4.1 10 ^3/uL (1.6-8.6); Neutrophils % (auto) 70.7 % (37.0-80.0); Nucleated Red Blood Cells % 0.2 %; Red Cell Distribution Width 18.5 % (11.8-14.3); White Blood Cell 5.8 10^3/uL (4.4-10.8)
[2023-11-21 06:19] LABS: Anion Gap 10 (5-15); Carbon Dioxide 26 mmol/L (20-30); Chloride 104 mmol/L (98-107); Potassium 2.8 mmol/L (3.5-5.1); Sodium 140 mmol/L (136-145)
[2023-11-21 06:20] LABS: Calcium 8.5 mg/dL (8.5-10.1)
[2023-11-21 06:25] LABS: BUN/Creatinine Ratio 10.7 (10.0-20.0); Blood Urea Nitrogen 9 mg/dL (9-23); Glucose 103 mg/dL (74-106)
[2023-11-21] MEDS: InsuLIN REG 1unit/0.01ml Soln (100units/ml) SC SCH ×3 (06:26→17:00)
[2023-11-21] MEDS: ACCU-CHEK COMFORT CURVE STRIP VI SCH ×3 (06:26→17:00)
[2023-11-21] MEDS: EMPAGLIFLOZIN 10 MG TAB PO SCH (06:27)
[2023-11-21 08:00] VITALS: BP 132/65; PULSE 75; PULSE 95; RESP 18; TEMP 98.6; O2SAT 98; O2SAT 99
[2023-11-21 09:00] VITALS: BP 136/63; PULSE 101; RESP 18; TEMP 98.6; O2SAT 92
[2023-11-21] MEDS: SACUBITRIL-VALSARTAN 24mg/26mg TAB PO SCH (09:30)
[2023-11-21] MEDS: ASPirin-EC 81 mg tab PO SCH (09:30)
[2023-11-21] MEDS: SPIRONOLACTONE 25 MG TAB PO SCH (09:31)
[2023-11-21] MEDS: cefTRIAXone 1GM/50ML D5W 50 ML IV SCH (09:32)
[2023-11-21] MEDS ORDERED: CARVEDILOL 12.5 MG TAB PO SCH (10:00)
[2023-11-21] MEDS ORDERED: FUROSEMIDE 40 MG/4 ML VIAL IV SCH (10:00)
[2023-11-21] MEDS: MORPHINE SULFATE INJ 2 MG/ml SYRG IV PRN (10:37)
[2023-11-21] MEDS ORDERED: CAR125T PO (11:23)
[2023-11-21] MEDS ORDERED: METH5TAB98 PO (11:23)
[2023-11-21] MEDS ORDERED: EMPA1TAB PO (11:23)
[2023-11-21] MEDS ORDERED: CEPH500T PO (11:23)
[2023-11-21] MEDS ORDERED: SACU1TAB PO (11:23)
[2023-11-21] MEDS ORDERED: SPIR25TA PO (11:23)
[2023-11-21] MEDS ORDERED: POTA-180 PO (11:23)
[2023-11-21] MEDS ORDERED: POTASSIUM CHL 20 Meq TABLET PO ONE (11:30)
[2023-11-21 12:39] VITALS: BP 135/65; PULSE 65; TEMP 37
[2023-11-21 13:00] VITALS: BP 98/37; PULSE 54; RESP 18; TEMP 97.9; O2SAT 54
[2023-11-21] MEDS ORDERED: methIMAzole 5 MG TAB PO SCH (14:00)
[2023-11-21] MEDS: RIVAROXABAN 15 MG TAB PO SCH (15:54)
[2023-11-21] MEDS ORDERED: ACETAMINOPHEN 325 MG TAB PO ONE (16:15)
[2023-11-21 17:24] VITALS: BP 145/80; PULSE 111; RESP 18; TEMP 96.9; O2SAT 90
== END 2023-11-21 18:31 | disposition hospice, home (50) | DRG 308 ==
LOC: ER 09:24 → EDBD 09:24 → TELE 13:44 → TELE-WESTW 23:20
PROVIDERS: ADMIT Internal Medicine; ATTEND Internal Medicine
DX: I48.20 Chronic atrial fibrillation, unspecified (principal); I50.43 Acute on chronic combined systolic (congestive) and diastolic (congestive) heart failure; N30.00 Acute cystitis without hematuria; R18.8 Other ascites; I35.1 Nonrheumatic aortic (valve) insufficiency; I11.0 Hypertensive heart disease with heart failure; E11.9 Type 2 diabetes mellitus without complications; E78.5 Hyperlipidemia, unspecified; J45.909 Unspecified asthma, uncomplicated; F32.A Depression, unspecified; F17.210 Nicotine dependence, cigarettes, uncomplicated; I25.10 Atherosclerotic heart disease of native coronary artery without angina pectoris; E05.90 Thyrotoxicosis, unspecified without thyrotoxic crisis or storm; I42.8 Other cardiomyopathies; E66.9 Obesity, unspecified; Z68.30 Body mass index [BMI] 30.0-30.9, adult; Z88.8 Allergy status to other drugs, medicaments and biological substances; I25.2 Old myocardial infarction; Z51.5 Encounter for palliative care; Z79.01 Long term (current) use of anticoagulants; Z83.3 Family history of diabetes mellitus; Z86.73 Personal history of transient ischemic attack (TIA), and cerebral infarction without residual deficits; Z95.810 Presence of automatic (implantable) cardiac defibrillator
CPT/HCPCS: 36415; 71045; 74176; 80048; 80053; 81001; 82306; 82607; 82962; 83690; 83735; 83880; 84439; 84443; 84480; 84484; 85025; 85610; 85730; 87081; 87086; 87088; 87186; 93005; 94640; 97116; 97163; 97530; 99291; G0378; J1815; J2405